=== PATIENT | male | born 1995 | race Caucasian/White ===

== ENCOUNTER 2016-10-26 11:13 | Emergency (ER) | payer MEDICAID ==
[2016-10-26] MEDS ORDERED: DEXAMETHASONE 10 MG/ML VIAL PO STA (12:38)
[2016-10-26] MEDS ORDERED: DEXAMETHASONE 10 MG/ML VIAL ONE (12:46)
[2016-10-26] MEDS ORDERED: CHERRY SYRUP 10 ML UDC PO ONE (12:46)
== END 2016-10-26 13:41 | disposition home or self-care (01) ==
DX: J45.21 Mild intermittent asthma with (acute) exacerbation (principal); H66.003 Acute suppurative otitis media without spontaneous rupture of ear drum, bilateral
CPT/HCPCS: 71020; 99283; 99284; A9270

== ENCOUNTER 2016-11-27 21:01 | Outpatient (CLI) | payer MEDICAID | END 2016-11-27 21:02 | disposition critical access hospital (66) | DX: R46.2 Strange and inexplicable behavior (principal); R44.0 Auditory hallucinations | CPT/HCPCS: A0425; A0429 ==

== ENCOUNTER 2016-11-27 21:08 | Emergency (ER) | payer MEDICAID ==
[2016-11-28] MEDS ORDERED: LORazepam 0.5 MG TABLET PO STA (00:45)
[2016-11-28] MEDS ORDERED: LORazepam 0.5 MG TABLET ONE (00:47)
== END 2016-11-28 16:55 ==
DX: F23 Brief psychotic disorder (principal); F22 Delusional disorders
CPT/HCPCS: 36415; 80048; 80306; 80307; 80320; 80329; 81003; 85025; 99284; 99285; A9270

== ENCOUNTER 2016-12-04 20:26 | Emergency (ER) | payer MEDICAID ==
[2016-12-04] MEDS ORDERED: KETOROLAC 60 MG/2 ML VIAL IM STA (20:56)
[2016-12-04] MEDS ORDERED: KETOROLAC 60 MG/2 ML VIAL ONE (21:20)
== END 2016-12-04 21:08 | disposition home or self-care (01) ==
DX: M25.512 Pain in left shoulder (principal); G89.29 Other chronic pain; F17.200 Nicotine dependence, unspecified, uncomplicated

== ENCOUNTER 2017-01-15 12:28 | Emergency (ER) | payer MEDICAID ==
[2017-01-15 13:12] LABS: BILIRUBIN,URINE NEGATIVE (NEGATIVE); PH,URINE 5.5 PH (5.0-7.5)
[2017-01-15 13:15] LABS: UA CHARGE (STRIP ONLY) YES; UR CULTURE IF IND NOT INDICATED
[2017-01-15 13:51] LABS: BASOPHILS % (AUTO) 0.4 %; EOSINOPHILS # (AUTO) 0.1 10^3/uL (0.0-0.7); EOSINOPHILS % (AUTO) 1.9 %; HCT - HEMATOCRIT 42.7 % (42.0-52.0); HGB - HEMOGLOBIN 14.9 g/dL (14.0-18.0); LYMPHOCYTES # (AUTO) 1.2 10^3/uL (1.5-3.5); LYMPHOCYTES % (AUTO) 19.2 %; MEAN CORPUSCULAR HEMOGLOBIN 28.5 pg (27.0-31.0); MEAN CORPUSCULAR VOLUME 81.6 fL (80.0-94.0); MEAN PLATELET VOLUME 8.3 fL (7.4-11.4); MONOCYTES # (AUTO) 0.5 10^3/uL (0.0-1.0); MONOCYTES % (AUTO) 7.7 %; NEUTROPHILS # (AUTO) 4.2 10^3/uL (1.5-6.6); NEUTROPHILS % (AUTO) 70.8 %; RED BLOOD COUNT 5.24 10^6/uL (4.70-6.10); RED CELL DISTRIBUTION WIDTH 12.7 % (12.0-15.0)
--- NOTE | 2017-01-15 13:54 | ED Physician Documentation ---
PD HPI MHE - Stated complaint Stated Complaint: SI - Chief complaint Chief Complaint: MHE - History obtained from History obtained from: Patient - History of Present Illness Primary symptom: Suicidal ideation Timing - onset: Chronic (worse for past week or so) Pain level max: 0 Pain level now: 0 Contributing factors: No: Family, Substance abuse - ETOH, Substance abuse - drugs Similar symptoms before: Diagnosis (depression) Recently seen: Not recently seen - Additional information Additional information: Patient is a 21-year-old male who states that he has been feeling suicidal for the past several months, worse over the past few days. Recently he was a voluntary admission to [place]. States that he left too early and would like to return. States he does not feel he can keep himself safe at home. Does not currently have a plan. [facility]. Review of Systems Ten Systems: 10 systems reviewed and negative Constitutional: denies: Fever, Chills Respiratory: denies: Cough GI: denies: Abdominal Pain, Nausea, Vomiting, Diarrhea Skin: denies: Rash PD PAST MEDICAL HISTORY - Past Medical History Cardiovascular: None Respiratory: None Neuro: None Endocrine/Autoimmune: None GI: None : Other HEENT: None Psych: Other Musculoskeletal: None Derm: None - Past Surgical History Past Surgical History: Yes - Present Medications Home Medications: Ambulatory Orders Medication Instructions Recorded Confirmed Risperidone 4 mg PO BID #6 tablet 01/15/17 Trazodone HCl 50 mg PO DAILY #3 tablet 01/15/17 - Allergies Allergies/Adverse Reactions: Allergies Allergy/AdvReac Type Severity Reaction Status Date / Time No Known Drug Allergies Allergy Unverified 12/04/16 20:37 - Social History Does the pt smoke?: Yes Smoking Status: Current every day smoker Does the pt drink ETOH?: No Does the pt have substance abuse?: No - Immunizations Immunizations are current?: Yes - POLST Patient has POLST: No PD ED PE NORMAL - Vitals Vital signs reviewed: Yes - General General: Alert and oriented X 3, No acute distress, Well developed/nourished - HEENT HEENT: PERRL, Moist mucous membranes - Neck Neck: Supple, no meningeal sign - Cardiac Cardiac: RRR, Strong equal pulses - Respiratory Respiratory: No respiratory distress, Clear bilaterally - Abdomen Abdomen: Soft, Non tender, Non distended - Derm Derm: Warm and dry - Extremities Extremities: No tenderness to palpate - Neuro Neuro: Alert and oriented X 3 - Psych Psych: Normal mood, Normal affect Results - Vitals Vitals: Vital Signs - 24 hr 01/15/17 01/15/17 01/15/17 12:35 18:16 20:51 Temperature 36.7 C 36.4 C L 37 C Heart Rate 90 57 L 70 Respiratory 17 15 18 Rate Blood Pressure 112/73 114/54 L 119/60 O2 Saturation 96 96 95 01/15/17 23:00 Temperature Heart Rate Respiratory 15 Rate Blood Pressure O2 Saturation Oxygen O2 Source Room air - Labs Labs: Laboratory Tests 01/15/17 01/15/17 01/15/17 13:04 13:18 13:18 WBC 6.0 RBC 5.24 Hgb 14.9 Hct 42.7 MCV 81.6 MCH 28.5 MCHC 35.0 RDW 12.7 Plt Count 199 MPV 8.3 Neut # 4.2 Lymph # 1.2 L Dale # 0.5 Eos # 0.1 Baso # 0.0 Absolute Nucleated RBC 0.00 Nucleated RBCs 0.0 Sodium 139 Potassium 3.9 Chloride 103 Carbon Dioxide 27 Anion Gap 9.0 BUN 12 Creatinine 0.8 Estimated GFR (MDRD) 123 Glucose 104 H Calcium 9.3 Total Bilirubin 1.1 H AST 22 ALT 14 Alkaline Phosphatase 51 Total Protein 7.3 Albumin 4.7 Globulin 2.6 Albumin/Globulin Ratio 1.8 Lipase 18 L Urine Color YELLOW Urine Clarity CLEAR Urine pH 5.5 Ur Specific [place] <=1.005 Urine Protein NEGATIVE Urine Glucose (UA) NEGATIVE Urine Ketones NEGATIVE Urine Occult Blood NEGATIVE Urine Nitrite NEGATIVE Urine Bilirubin NEGATIVE Urine Urobilinogen 0.2 (NORMAL) Ur Leukocyte Esterase NEGATIVE Ur Microscopic Review NOT INDICATED Urine Culture Comments NOT INDICATED Salicylates < 6.0 Urine Opiates Screen NEGATIVE Ur Oxycodone Screen NEGATIVE Urine Methadone Screen NEGATIVE Ur Propoxyphene Screen NEGATIVE Acetaminophen < 10 L Ur Barbiturates Screen NEGATIVE Ur Tricyclics Screen NEGATIVE Ur Phencyclidine Scrn NEGATIVE Ur Amphetamine Screen NEGATIVE U Methamphetamines Scrn NEGATIVE U Benzodiazepines Scrn NEGATIVE Urine Cocaine Screen NEGATIVE U Cannabinoids Screen NEGATIVE Ethyl Alcohol < 5.0 PD MEDICAL DECISION MAKING - ED course Complexity details: reviewed results, re-evaluated patient, considered differential, d/w patient ED course: Patient presents to the emergency department with suicidal ideation and depression. [facility] has no available beds for him to return to. Social work was consulted and he is able to contract for safety and would like to go to a respite bed. Will prescribe medications for him for the next 3 days. Patient is calm and cooperative in the emergency department. He will go to [facility] for respite by taxi. Patient counseled regarding signs and symptoms for which I believe and urgent re-evaluation would be necessary. Patient with good understanding of and agreement to plan and is comfortable going home at this time This document was made in part using voice recognition software. While efforts are made to proofread this document, sound alike and grammatical errors may occur. Departure - Departure Disposition: 01 Home, Self Care Clinical Impression: Depression Qualifiers: Depression Type: unspecified Qualified Code(s): F32.9 - Major depressive disorder, single episode, unspecified Condition: Good Instructions: ED Depression Follow-Up: Anjel Richards MD [Primary Care Provider] - Within 1 week Prescriptions: Risperidone 4 mg PO BID #6 tablet Trazodone HCl 50 mg PO DAILY #3 tablet Comments: Return if you worsen. [facility] Discharge Date/Time: 01/15/17 23:30
[2017-01-15 13:56] LABS: ALBUMIN/GLOBULIN RATIO 1.8 (1.0-2.2); BILIRUBIN,TOTAL 1.1 mg/dL (0.2-1.0); BUN - BLOOD UREA NITROGEN 12 mg/dL (6-20); CALCIUM 9.3 mg/dL (8.5-10.3); CARBON DIOXIDE - CO2 27 mmol/L (21-32); CHLORIDE 103 mmol/L (101-111); CREATININE 0.8 mg/dL (0.6-1.2); GFR - MDRD 123 (>89); GLUCOSE 104 mg/dL (70-100); LIPASE 18 U/L (22-51); POTASSIUM 3.9 mmol/L (3.5-5.0); SALICYLATE < 6.0 mg/dL; SODIUM 139 mmol/L (135-145); TOTAL PROTEIN 7.3 g/dL (6.7-8.2)
[2017-01-15 13:57] LABS: ACETAMINOPHEN < 10 ug/mL (10-30)
[2017-01-15 20:51] VITALS: BP 119/60
[2017-01-15] MEDS ORDERED: risperiDONE 1 MG TABLET PO STA (21:46)
== END 2017-01-15 23:30 | disposition home or self-care (01) ==
LOC: ED 12:28
DX: F32.9 Major depressive disorder, single episode, unspecified (principal); R45.851 Suicidal ideations; F17.200 Nicotine dependence, unspecified, uncomplicated
CPT/HCPCS: 36415; 80053; 80306; 80307; 80320; 80329; 81003; 83690; 85025; 99284; A9270; 81001; 87086

== ENCOUNTER 2017-01-25 14:35 | Emergency (ER) | payer MEDICAID ==
[2017-01-25 14:58] LABS: BILIRUBIN,URINE NEGATIVE (NEGATIVE)
[2017-01-25 15:08] LABS: UA w/ MICROSCOPIC CHARGE YES
[2017-01-25 15:16] LABS: UR CULTURE IF IND NOT INDICATED; WBC,URINE 0-3 /HPF (0-3)
--- NOTE | 2017-01-25 15:35 | ED Physician Documentation ---
PD HPI MHE - Stated complaint Stated Complaint: MHE - Chief complaint Chief Complaint: MHE - History obtained from History obtained from: Patient - History of Present Illness Primary symptom: Depression, Anxiety, Other (trouble sleeping, partly system related in that he did not get to sleep well the past few nights and they have to be up by 9:30 or so at [facility] as part of the agreement staying there.) . No: Suicidal ideation, Suicide attempt, Off meds Timing - onset: How many days ago (few) Contributing factors: No: Substance abuse - ETOH, Substance abuse - drugs Recently seen: Clinic (gets counseling weekly) Review of Systems Constitutional: denies: Fever, Chills Nose: denies: Rhinorrhea / runny nose, Congestion Throat: denies: Sore throat Respiratory: denies: Cough GI: denies: Nausea, Vomiting, Diarrhea Skin: denies: Rash, Lesions Neurologic: denies: Altered mental status, Headache, Head injury Psychiatric: reports: Depressed, Anxiety, Insomnia. denies: Suicidal, Delusions PD PAST MEDICAL HISTORY - Past Medical History Cardiovascular: None Respiratory: None Neuro: None Endocrine/Autoimmune: None GI: None : Other HEENT: None Psych: Other Musculoskeletal: None Derm: None - Past Surgical History Past Surgical History: Yes - Present Medications Home Medications: Ambulatory Orders Medication Instructions Recorded Confirmed Risperidone 4 mg PO BID #6 tablet 01/15/17 Trazodone HCl 50 mg PO DAILY #3 tablet 01/15/17 - Allergies Allergies/Adverse Reactions: Allergies Allergy/AdvReac Type Severity Reaction Status Date / Time No Known Drug Allergies Allergy Unverified 12/04/16 20:37 - Social History Does the pt smoke?: Yes Smoking Status: Current every day smoker Does the pt drink ETOH?: No Does the pt have substance abuse?: No - Immunizations Immunizations are current?: Yes - POLST Patient has POLST: No PD ED PE NORMAL - Vitals Vital signs reviewed: Yes - General General: Alert and oriented X 3, No acute distress, Well developed/nourished - HEENT HEENT: Atraumatic, Pharynx benign - Neck Neck: Supple, no meningeal sign, No adenopathy - Cardiac Cardiac: RRR, No murmur - Respiratory Respiratory: Clear bilaterally - Abdomen Abdomen: Soft, Non tender - Derm Derm: Normal color, Warm and dry - Extremities Extremities: No tenderness to palpate, Normal ROM s pain - Neuro Neuro: Alert and oriented X 3, director electronics 2-12 intact, No motor deficit, No sensory deficit, Normal speech, Other - Psych Psych: Normal mood, Normal affect Results - Vitals Vitals: Oxygen O2 Source Room air - Labs Labs: Laboratory Tests 01/25/17 01/25/17 01/25/17 14:45 16:01 16:01 WBC 8.3 RBC 5.15 Hgb 14.6 Hct 42.5 MCV 82.6 MCH 28.4 MCHC 34.4 RDW 13.0 Plt Count 210 MPV 7.8 Neut # 6.0 Lymph # 1.5 Turner # 0.6 Eos # 0.1 Baso # 0.0 Absolute Nucleated RBC 0.00 Nucleated RBCs 0.0 Sodium 136 Potassium 4.3 Chloride 99 L Carbon Dioxide 27 Anion Gap 10.0 BUN 14 Creatinine 0.8 Estimated GFR (MDRD) 123 Glucose 96 Calcium 9.1 Total Bilirubin 0.7 AST 19 ALT 18 Alkaline Phosphatase 46 Total Protein 6.9 Albumin 4.4 Globulin 2.5 Albumin/Globulin Ratio 1.8 Lipase 18 L TSH Urine Color YELLOW Urine Clarity HAZY Urine pH 7.0 Ur Specific Arthur 1.015 Urine Protein NEGATIVE Urine Glucose (UA) NEGATIVE Urine Ketones NEGATIVE Urine Occult Blood NEGATIVE Urine Nitrite NEGATIVE Urine Bilirubin NEGATIVE Urine Urobilinogen 0.2 (NORMAL) Ur Leukocyte Esterase NEGATIVE Urine RBC 0-5 Urine WBC 0-3 Ur Squamous Epith Cells NONE SEEN Amorphous Sediment Marked Urine Bacteria None Seen Ur Microscopic Review INDICATED Urine Culture Comments NOT INDICATED Salicylates < 6.0 Urine Opiates Screen NEGATIVE Ur Oxycodone Screen NEGATIVE Urine Methadone Screen NEGATIVE Ur Propoxyphene Screen NEGATIVE Acetaminophen < 10 L Ur Barbiturates Screen NEGATIVE Ur Tricyclics Screen NEGATIVE Ur Phencyclidine Scrn NEGATIVE Ur Amphetamine Screen NEGATIVE U Methamphetamines Scrn NEGATIVE U Benzodiazepines Scrn NEGATIVE Urine Cocaine Screen NEGATIVE U Cannabinoids Screen NEGATIVE Ethyl Alcohol < 5.0 01/25/17 16:01 WBC RBC Hgb Hct MCV MCH MCHC RDW Plt Count MPV Neut # Lymph # Turner # Eos # Baso # Absolute Nucleated RBC Nucleated RBCs Sodium Potassium Chloride Carbon Dioxide Anion Gap BUN Creatinine Estimated GFR (MDRD) Glucose Calcium Total Bilirubin AST ALT Alkaline Phosphatase Total Protein Albumin Globulin Albumin/Globulin Ratio Lipase TSH 0.81 Urine Color Urine Clarity Urine pH Ur Specific Arthur Urine Protein Urine Glucose (UA) Urine Ketones Urine Occult Blood Urine Nitrite Urine Bilirubin Urine Urobilinogen Ur Leukocyte Esterase Urine RBC Urine WBC Ur Squamous Epith Cells Amorphous Sediment Urine Bacteria Ur Microscopic Review Urine Culture Comments Salicylates Urine Opiates Screen Ur Oxycodone Screen Urine Methadone Screen Ur Propoxyphene Screen Acetaminophen Ur Barbiturates Screen Ur Tricyclics Screen Ur Phencyclidine Scrn Ur Amphetamine Screen U Methamphetamines Scrn U Benzodiazepines Scrn Urine Cocaine Screen U Cannabinoids Screen Ethyl Alcohol PD MEDICAL DECISION MAKING - ED course Complexity details: reviewed results, considered differential, d/w patient, d/w business solutions consultant (SW talked with patient and his counselor and arranged f/u appt tomorrow. Patient okay with that and was to return to [facility] and did not feel he needed Respite nor hospitalization right today anymore.) Departure - Departure Disposition: 01 Home, Self Care Clinical Impression: Sleep difficulties Depression Qualifiers: Depression Type: major depressive disorder Major depression recurrence: recurrent Active/Remission status: currently active Major depression episode severity: moderate Qualified Code(s): F33.1 - Major depressive disorder, recurrent, moderate Condition: Stable Record reviewed to determine appropriate education?: Yes Instructions: ED Depression Follow-Up: [facility] [Provider Group] Comments: Usual medications, though you could consider changing the timing of your Risperdone from 4 mg AM and 3 mg PM and change it to 2 mg AM and 5 mg PM, to see if less side effects during the day and improved sleep at night. Drink lots of fluids. Follow up BERT[facility] counselor tomorrow at 11 AM as planned. Discharge Date/Time: 01/25/17 17:17
[2017-01-25 16:06] LABS: BASOPHILS % (AUTO) 0.6 %; EOSINOPHILS # (AUTO) 0.1 10^3/uL (0.0-0.7); EOSINOPHILS % (AUTO) 1.6 %; HCT - HEMATOCRIT 42.5 % (42.0-52.0); HGB - HEMOGLOBIN 14.6 g/dL (14.0-18.0); LYMPHOCYTES # (AUTO) 1.5 10^3/uL (1.5-3.5); LYMPHOCYTES % (AUTO) 17.9 %; MEAN CORPUSCULAR HEMOGLOBIN 28.4 pg (27.0-31.0); MEAN CORPUSCULAR HGB CONC 34.4 g/dL (32.0-36.0); MEAN CORPUSCULAR VOLUME 82.6 fL (80.0-94.0); MEAN PLATELET VOLUME 7.8 fL (7.4-11.4); MONOCYTES # (AUTO) 0.6 10^3/uL (0.0-1.0); MONOCYTES % (AUTO) 7.8 %; NEUTROPHILS % (AUTO) 72.1 %; RED BLOOD COUNT 5.15 10^6/uL (4.70-6.10); UNCORRECTED WHITE BLOOD COUNT 8.3 x10^3/uL; WHITE BLOOD COUNT 8.3 x10^3/uL (4.8-10.8)
[2017-01-25 16:30] LABS: ALBUMIN/GLOBULIN RATIO 1.8 (1.0-2.2); BILIRUBIN,TOTAL 0.7 mg/dL (0.2-1.0); BUN - BLOOD UREA NITROGEN 14 mg/dL (6-20); CALCIUM 9.1 mg/dL (8.5-10.3); CARBON DIOXIDE - CO2 27 mmol/L (21-32); CHLORIDE 99 mmol/L (101-111); CREATININE 0.8 mg/dL (0.6-1.2); GFR - MDRD 123 (>89); GLUCOSE 96 mg/dL (70-100); LIPASE 18 U/L (22-51); POTASSIUM 4.3 mmol/L (3.5-5.0); SALICYLATE < 6.0 mg/dL; SODIUM 136 mmol/L (135-145); TOTAL PROTEIN 6.9 g/dL (6.7-8.2)
[2017-01-25 17:15] VITALS: BP 113/62
[2017-01-25 17:17] LABS: ACETAMINOPHEN < 10 ug/mL (10-30)
== END 2017-01-25 17:17 | disposition home or self-care (01) ==
LOC: ED 14:35
DX: G47.9 Sleep disorder, unspecified (principal); F33.1 Major depressive disorder, recurrent, moderate; F17.200 Nicotine dependence, unspecified, uncomplicated
CPT/HCPCS: 36415; 80053; 80306; 80307; 80320; 80329; 81001; 81003; 83690; 84443; 85025; 87086; 99283

== ENCOUNTER 2017-03-09 12:54 | Emergency (ER) | payer OTHER, MEDICAID ==
[2017-03-09 13:05] VITALS: BP 114/69
--- NOTE | 2017-03-09 14:28 | ED Physician Documentation ---
History of Present Illness - Stated complaint Stated Complaint: COLLARBONE INJURY - Chief complaint Chief Complaint: Ext Problem - History obtained from History obtained from: Patient - History of Present Illness Timing: Today, How many hours ago (1) Pain level max: 6 Pain level now: 2 Quality: dull Improved by: nothing Worsened by: palpation - Treatment prior to arrival Treatment prior to arrival: Patient was at work today using a crowbar to pull up an old deck when he struck himself in the right clavicle. States initially had pain, though now improving. Told by his boss to come for evaluation today. Review of Systems Constitutional: denies: Fever Musculoskeletal: denies: Neck pain, Back pain Neurologic: denies: Focal weakness, Numbness, Headache PD PAST MEDICAL HISTORY - Past Medical History Past Medical History: No Cardiovascular: None Respiratory: None Neuro: None Endocrine/Autoimmune: None GI: None : Other HEENT: None Psych: Other Musculoskeletal: None Derm: None - Past Surgical History Past Surgical History: Yes - Present Medications Home Medications: Ambulatory Orders Medication Instructions Recorded Confirmed Trazodone HCl 50 mg PO DAILY #3 tablet 01/15/17 03/09/17 Risperidone 2 mg PO DAILY 03/09/17 03/09/17 Risperidone 4 mg PO DAILY 03/09/17 03/09/17 - Allergies Allergies/Adverse Reactions: Allergies Allergy/AdvReac Type Severity Reaction Status Date / Time No Known Drug Allergies Allergy Verified 03/09/17 13:05 - Social History Does the pt smoke?: Yes Smoking Status: Current every day smoker Does the pt drink ETOH?: No Does the pt have substance abuse?: No - Immunizations Immunizations are current?: Yes - POLST Patient has POLST: No PD ED PE NORMAL - Vitals Vital signs reviewed: Yes - General General: Alert and oriented X 3, No acute distress, Well developed/nourished - HEENT HEENT: Atraumatic, PERRL, Moist mucous membranes - Neck Neck: Supple, no meningeal sign, No bony TTP - Cardiac Cardiac: RRR - Respiratory Respiratory: No respiratory distress, Clear bilaterally - Derm Derm: Warm and dry - Extremities Extremities: Other (Mild tenderness to palpation over the right mid clavicle. There is a slight abrasion and contusion at this point. No gross deformity. Neurovascularly intact over the right upper extremity including the axillary nerve.) - Neuro Neuro: Alert and oriented X 3 - Psych Psych: Normal mood, Normal affect Results - Vitals Vitals: Vital Signs - 24 hr 03/09/17 13:04 Temperature 36.7 C Heart Rate 78 Respiratory 14 Rate Blood Pressure 114/69 O2 Saturation 100 Oxygen O2 Source Room air - Rads (name of study) Right clavicle x-ray Radiology: Prelim report reviewed, EMP read contemporaneously, See rad report ( Normal) PD MEDICAL DECISION MAKING - ED course Complexity details: considered differential, d/w patient ED course: Patient is a 21-year-old male with a clavicle contusion. No acute findings on x -ray. Using the arm quite well here. Declines any pain medication for home. Patient counseled regarding signs and symptoms for which I believe and urgent re -evaluation would be necessary. Patient with good understanding of and agreement to plan and is comfortable going home at this time This document was made in part using voice recognition software. While efforts are made to proofread this document, sound alike and grammatical errors may occur. Departure - Departure Disposition: 01 Home, Self Care Clinical Impression: Contusion of right clavicle Qualifiers: Encounter type: initial encounter Qualified Code(s): S40.011A - Contusion of right shoulder, initial encounter Condition: Good Instructions: ED Contusion Soft Tissue Follow-Up: Anjel Richards MD [Primary Care Provider] - Within 1 week Comments: Return if you worsen. There is no fracture on your xray today. Discharge Date/Time: 03/09/17 14:37
--- NOTE | 2017-03-09 14:33 | XRAY Preliminary Report ---
Exam: XR Clavicle RT IMPRESSION: Normal clavicle radiography. [facility] SITE ID: [id number]
--- NOTE | 2017-03-09 14:35 | XRAY Report ---
EXAM: RIGHT CLAVICLE RADIOGRAPHY EXAM DATE: 03/09/2017 02:15 PM. CLINICAL HISTORY: Clavicle vs crowbar. COMPARISON: None. TECHNIQUE: 2 views. FINDINGS: Bones: Normal. No fracture or bone lesion. Joints: The acromioclavicular and sternoclavicular joints are normal. No subluxation. Soft Tissues: Normal. No soft tissue swelling. IMPRESSION: Normal clavicle radiography. [facility] Referring Provider Line: [phone] SITE ID: [id number]
== END 2017-03-09 14:37 | disposition home or self-care (01) ==
LOC: ED 12:54
DX: S40.011A Contusion of right shoulder, initial encounter (principal); W22.8XXA Striking against or struck by other objects, initial encounter; Y92.89 Other specified places as the place of occurrence of the external cause; Y99.0 Civilian activity done for income or pay; F17.200 Nicotine dependence, unspecified, uncomplicated
CPT/HCPCS: 1040M; 99283

== ENCOUNTER 2017-04-29 13:32 | Emergency (ER) | payer MEDICAID ==
--- NOTE | 2017-04-29 15:06 | ED Physician Documentation ---
PD HPI UPPER EXT INJURY - Stated complaint Stated Complaint: FINGER LAC - Chief complaint Chief Complaint: Laceration - History obtained from History obtained from: Patient - History of Present Illness Location: Left, Finger (index finger tip) Type of injury: Laceration Timing - onset: Today Timing - details: Abrupt onset (bled briskly at first, but stopped enroute.) Associated symptoms: No: Weakness, Numbness Similar symptoms before: Has not had sx before Recently seen: Not recently seen Review of Systems Neurologic: denies: Focal weakness, Numbness PD PAST MEDICAL HISTORY - Past Medical History Cardiovascular: None Respiratory: None Neuro: None Endocrine/Autoimmune: None GI: None : Other HEENT: None Psych: Other Musculoskeletal: None Derm: None - Past Surgical History Past Surgical History: Yes - Present Medications Home Medications: Ambulatory Orders Medication Instructions Recorded Confirmed Trazodone HCl 50 mg PO DAILY #3 tablet 01/15/17 04/29/17 Risperidone 4 mg PO DAILY 03/09/17 04/29/17 Aripiprazole [Abilify] 10 mg PO DAILY 04/29/17 04/29/17 - Allergies Allergies/Adverse Reactions: Allergies Allergy/AdvReac Type Severity Reaction Status Date / Time No Known Drug Allergies Allergy Verified 04/29/17 15:06 - Social History Does the pt smoke?: Yes Smoking Status: Current every day smoker Does the pt drink ETOH?: No Does the pt have substance abuse?: No - Immunizations Immunizations are current?: Yes - POLST Patient has POLST: No PD ED PE NORMAL - Vitals Vital signs reviewed: Yes - General General: Alert and oriented X 3, Well developed/nourished - Derm Derm: Normal color, Warm and dry - Extremities Extremities: Other (left index finger with laceration without bleeding or FB. Edges are together now. Not into nailbed. Patient okay with steri-strips. ) Results - Vitals Vitals: Oxygen O2 Source Room air PD MEDICAL DECISION MAKING - ED course Complexity details: considered differential (bleeding stopped and edges together. I think it can be just steristrips. ), d/w patient Departure - Departure Disposition: 01 Home, Self Care Clinical Impression: Finger laceration Qualifiers: Encounter type: initial encounter Finger: index finger Damage to nail status: without damage Foreign body presence: without foreign body Laterality: left Qualified Code(s): S61.211A - Laceration without foreign body of left index finger without damage to nail, initial encounter Condition: Stable Record reviewed to determine appropriate education?: Yes Instructions: ED Laceration Hand Comments: Keep the wound clean and dry. Allow the glue and Steri-Strips to fall off on their own after several days. After that regular wound care with cleansing soap and water and ointment and Band-Aid. Recheck if signs of infection. Discharge Date/Time: 04/29/17 15:26
[2017-04-29 15:27] VITALS: BP 118/72
== END 2017-04-29 15:26 | disposition home or self-care (01) ==
LOC: ED 13:32
DX: S61.211A Laceration without foreign body of left index finger without damage to nail, initial encounter (principal); W26.9XXA Contact with unspecified sharp object(s), initial encounter; F17.200 Nicotine dependence, unspecified, uncomplicated
CPT/HCPCS: 99281; 99283

== ENCOUNTER 2017-10-25 09:31 | Emergency (ER) | payer MEDICAID ==
[2017-10-25 11:57] LABS: BASOPHILS % (AUTO) 0.5 %; EOSINOPHILS # (AUTO) 0.2 10^3/uL (0.0-0.7); EOSINOPHILS % (AUTO) 2.3 %; HGB - HEMOGLOBIN 16.3 g/dL (14.0-18.0); LYMPHOCYTES # (AUTO) 1.2 10^3/uL (1.5-3.5); LYMPHOCYTES % (AUTO) 16.1 %; MEAN CORPUSCULAR HEMOGLOBIN 28.7 pg (27.0-31.0); MEAN CORPUSCULAR HGB CONC 34.3 g/dL (32.0-36.0); MEAN CORPUSCULAR VOLUME 83.7 fL (80.0-94.0); MEAN PLATELET VOLUME 7.8 fL (7.4-11.4); MONOCYTES # (AUTO) 0.6 10^3/uL (0.0-1.0); MONOCYTES % (AUTO) 7.8 %; NEUTROPHILS # (AUTO) 5.4 10^3/uL (1.5-6.6); NEUTROPHILS % (AUTO) 73.3 %; PLT - PLATELET COUNT 230 10^3/uL (130-450); RED CELL DISTRIBUTION WIDTH 13.5 % (12.0-15.0); WHITE BLOOD COUNT 7.4 x10^3/uL (4.8-10.8)
[2017-10-25 12:12] LABS: ALBUMIN 4.7 g/dL (3.2-5.5); ALBUMIN/GLOBULIN RATIO 1.6 (1.0-2.2); ALKALINE PHOSPHATASE 53 IU/L (42-121); ALT ALANINE AMINOTRANSFERASE 16 IU/L (10-60); AST ASPARTATE AMINOTRANSFERASE 21 IU/L (10-42); BILIRUBIN,TOTAL 1.3 mg/dL (0.2-1.0); BUN - BLOOD UREA NITROGEN 13 mg/dL (6-20); CALCIUM 9.3 mg/dL (8.5-10.3); CARBON DIOXIDE - CO2 27 mmol/L (21-32); CHLORIDE 98 mmol/L (101-111); CREATININE 0.8 mg/dL (0.6-1.2); GFR - MDRD 122 (>89); GLUCOSE 101 mg/dL (70-100); LIPASE 17 U/L (22-51); SALICYLATE < 6.0 mg/dL; SODIUM 135 mmol/L (135-145); TOTAL PROTEIN 7.7 g/dL (6.7-8.2)
[2017-10-25 12:13] LABS: ACETAMINOPHEN < 10 ug/mL (10-30)
[2017-10-25 12:33] LABS: MUDS CUTOFF CONCENTRATIONS CUTOFF CONC BELOW:
[2017-10-25 12:34] LABS: BILIRUBIN,URINE NEGATIVE (NEGATIVE); GLUCOSE, URINE (UA) NEGATIVE (NEGATIVE); KETONES,URINE (UA) NEGATIVE (NEGATIVE); LEUKOCYTE ESTERASE, URINE NEGATIVE (NEGATIVE); NITRITE,URINE NEGATIVE (NEGATIVE); OCCULT BLOOD,URINE NEGATIVE (NEGATIVE); PH,URINE 7.5 PH (5.0-7.5); PROTEIN,URINE NEGATIVE (NEGATIVE); UROBILINOGEN,URINE 0.2 (NORMAL) E.U./dL (NORMAL)
[2017-10-25 12:35] LABS: CLARITY,URINE CLEAR (CLEAR)
[2017-10-25 12:49] LABS: PROPOXYPHENE SCREEN, URINE NEGATIVE (NEGATIVE)
[2017-10-25 12:50] LABS: AMPHETAMINE SCREEN,URINE NEGATIVE (NEGATIVE); BENZODIAZEPINES SCREEN, URINE NEGATIVE (NEGATIVE); COCAINE SCREEN URINE NEGATIVE (NEGATIVE); METHADONE SCREEN, URINE NEGATIVE (NEGATIVE); METHAMPHETAMINES SCREEN, URINE NEGATIVE (NEGATIVE); OPIATE SCREEN, URINE NEGATIVE (NEGATIVE); OXYCODONE SCREEN, URINE NEGATIVE (NEGATIVE); TRICYCLIC ANTIDEPRESSANT,URINE NEGATIVE (NEGATIVE)
--- NOTE | 2017-10-25 13:28 | ED Physician Documentation ---
PD HPI MHE - Stated complaint Stated Complaint: MHE - Chief complaint Chief Complaint: MHE - History obtained from History obtained from: Patient, Family - History of Present Illness Primary symptom: Psychosis, Off meds. No: Suicidal ideation, Self harm - other Timing - onset: How many weeks ago (2-3 worsening) Contributing factors: Off meds (The patient has not taken his medications for about 2-3 months. His father and also his adopted mother refers to her herself as his aunt both say the patient has had increasing light of ideas and has had a lot of episodes of responding to internal stimulus with suddenly breaking out and hysterical laughter and also seeming to adjust to and out from his environment in the just staring blankly. He is working as a cook and his father states 1 of the coworkers told him the patient expressed the idea couple of days ago of "I wonder what would happen if you just put my arms into this hot grease). He has had significant degree of delusions of parasitism and has been picking at his skin more and more over the last several days in particular. He has been cleaning himself with various disinfectants and also some peroxide. His father expresses concern that he may try to cleanse his skin with the cooking grease at work. He has not had any mack at this point. The adamantly says he does not want to take medicines.) Similar symptoms before: Diagnosis (acute psychosis), Other (he has some ongoing feeling of parasitism, but this has been considerably worse the past week.) Recently seen: Not recently seen Review of Systems Constitutional: denies: Fever, Chills Nose: denies: Rhinorrhea / runny nose, Congestion Throat: denies: Sore throat Cardiac: denies: Chest pain / pressure, Palpitations Respiratory: denies: Dyspnea, Cough GI: denies: Nausea, Vomiting, Diarrhea Skin: reports: Other (Feeling of bugs crawling on him all over and feels that he cannot get rid of them even after washing.). denies: Abrasion (s), Laceration (s) Musculoskeletal: denies: Neck pain, Back pain PD PAST MEDICAL HISTORY - Past Medical History Cardiovascular: None Respiratory: None Neuro: None Endocrine/Autoimmune: None GI: None : Other HEENT: None Psych: Other Musculoskeletal: None Derm: None - Past Surgical History Past Surgical History: Yes - Present Medications Home Medications: Ambulatory Orders Medication Instructions Recorded Confirmed No Known Home Medications [No 10/25/17 10/25/17 Known Home Medications] - Allergies Allergies/Adverse Reactions: Allergies Allergy/AdvReac Type Severity Reaction Status Date / Time No Known Drug Allergies Allergy Verified 04/29/17 15:06 - Social History Does the pt smoke?: Yes Smoking Status: Current every day smoker Does the pt drink ETOH?: Yes ETOH Use: Beer Does the pt have substance abuse?: No - Immunizations Immunizations are current?: Yes - POLST Patient has POLST: No PD ED PE NORMAL - Vitals Vital signs reviewed: Yes - General General: Alert and oriented X 3, No acute distress, Well developed/nourished - HEENT HEENT: Moist mucous membranes, Pharynx benign, Other (some superficial scratch/ excoriation stevenson on face and forehead presume from him scratching himself. ) - Neck Neck: Supple, no meningeal sign, No adenopathy - Cardiac Cardiac: RRR, No murmur - Respiratory Respiratory: Clear bilaterally - Derm Derm: Normal color, Warm and dry - Neuro Neuro: Alert and oriented X 3, No motor deficit, Normal speech - Psych Psych: Other (Tangential thought process and he also states he does not believe he needs medication or treatment. There is a tone of paranoia and that he feels concerned about people making decisions for him. He expresses concern about the legality of being hospitalized. We explained to him the applicable statutes but he denies their applicability to him. He does not express any suicidal ideation.) Results - Vitals Vitals: Vital Signs - 24 hr 10/25/17 10/25/17 10/25/17 10:06 12:21 19:26 Temperature 37.1 C Heart Rate 88 75 61 Respiratory 18 16 17 Rate Blood Pressure 138/69 H 146/83 H 118/68 O2 Saturation 98 96 97 10/25/17 21:35 Temperature Heart Rate 82 Respiratory 14 Rate Blood Pressure 123/68 O2 Saturation 99 Oxygen O2 Source Room air - Labs Labs: Laboratory Tests 10/25/17 10/25/17 10/25/17 11:52 11:52 12:30 WBC 7.4 RBC 5.70 Hgb 16.3 Hct 47.7 MCV 83.7 MCH 28.7 MCHC 34.3 RDW 13.5 Plt Count 230 MPV 7.8 Neut # 5.4 Lymph # 1.2 L [place] # 0.6 Eos # 0.2 Baso # 0.0 Absolute Nucleated RBC 0.00 Nucleated RBC % 0.0 Sodium 135 Potassium 3.6 Chloride 98 L Carbon Dioxide 27 Anion Gap 10.0 BUN 13 Creatinine 0.8 Estimated GFR (MDRD) 122 Glucose 101 H Calcium 9.3 Total Bilirubin 1.3 H AST 21 ALT 16 Alkaline Phosphatase 53 Total Protein 7.7 Albumin 4.7 Globulin 3.0 Albumin/Globulin Ratio 1.6 Lipase 17 L Urine Color YELLOW Urine Clarity CLEAR Urine pH 7.5 Ur Specific [place] 1.015 Urine Protein NEGATIVE Urine Glucose (UA) NEGATIVE Urine Ketones NEGATIVE Urine Occult Blood NEGATIVE Urine Nitrite NEGATIVE Urine Bilirubin NEGATIVE Urine Urobilinogen 0.2 (NORMAL) Ur Leukocyte Esterase NEGATIVE Ur Microscopic Review NOT INDICATED Urine Culture Comments NOT INDICATED Salicylates < 6.0 Urine Opiates Screen NEGATIVE Ur Oxycodone Screen NEGATIVE Urine Methadone Screen NEGATIVE Ur Propoxyphene Screen NEGATIVE Acetaminophen < 10 L Ur Barbiturates Screen NEGATIVE Ur Tricyclics Screen NEGATIVE Ur Phencyclidine Scrn NEGATIVE Ur Amphetamine Screen NEGATIVE U Methamphetamines Scrn NEGATIVE U Benzodiazepines Scrn NEGATIVE Urine Cocaine Screen NEGATIVE U Cannabinoids Screen NEGATIVE Ethyl Alcohol < 5.0 PD MEDICAL DECISION MAKING - ED course Complexity details: considered differential (The patient is not suicidal nor homicidal. However he has a reasonable paranoia and also is quite adamant against medications. He does have some tangential thought processes. I think he is developing psychosis and is not approachable for outpatient treatment with his resistance to medication. I think he needs treatment and unfortunately will not be able to be done cooperatively at this point. research worker kitchen also felt the [facility] needed to be involved. The [facility] came and evaluated the patient and felt that he needed to be hospitalized after discussion with family.), d/w patient, d/w family Departure - Departure Disposition: 65 Psych Hosp/Unit DC/Xfer Clinical Impression: Acute psychosis, Delusions of parasitosis Condition: Stable Record reviewed to determine appropriate education?: Yes Discharge Date/Time: 10/25/17 22:00
[2017-10-25 22:23] VITALS: BP 123/68
== END 2017-10-25 22:00 ==
LOC: ED 09:31
DX: F23 Brief psychotic disorder (principal); F22 Delusional disorders; F17.200 Nicotine dependence, unspecified, uncomplicated
CPT/HCPCS: 36415; 80053; 80306; 80307; 80320; 80329; 81001; 81003; 83690; 85025; 87086; 99283; 99284

== ENCOUNTER 2017-10-25 21:54 | Outpatient (CLI) | payer MEDICAID | END 2017-10-25 21:55 | LOC: EMS 21:54 | PROVIDERS: ATTEND Surgery | DX: F22 Delusional disorders (principal) | CPT/HCPCS: A0425; A0428 ==

== ENCOUNTER 2018-09-29 14:10 | Emergency (ER) | payer MEDICAID, OTHER ==
[2018-09-29 14:20] VITALS: BP 111/62
--- NOTE | 2018-09-29 15:50 | ED Physician Documentation ---
PD HPI SKIN - Stated complaint Stated Complaint: R HAND SWELLING/REDNESS - Chief complaint Chief Complaint: Ext Problem - History obtained from History obtained from: Patient - History of Present Illness Timing - onset: Other (1 month ago) Timing - duration: Months (1) Timing - details: Gradual onset Pain level max: 3 Pain level now: 2 Location: Other (B hands) Quality / character: Itchy, Raised, Crusted Improved by: Other (nothing) Worsened by (comment): COMMENT (nothing) Associated symptoms: No: Fever, Myalgias, Joint pain, Headache, Facial swelling, Dyspnea, Abd pain, N/V/D, Urinary sx Contributing factors: No: Exposed to medication, Exposed to food, Exposed to soap / lotion, Exposed to Poison bekah/oak, Insect bite /sting, Recent illness Similar symptoms before: Diagnosis (eczema) Recently seen: Not recently seen Review of Systems Constitutional: denies: Fever, Chills GI: denies: Nausea, Vomiting Neurologic: denies: Headache PD PAST MEDICAL HISTORY - Past Medical History Past Medical History: No Cardiovascular: None Respiratory: None Endocrine/Autoimmune: None GI: None : Other HEENT: None Psych: Other Musculoskeletal: None Derm: None - Past Surgical History Past Surgical History: Yes - Present Medications Home Medications: Ambulatory Orders Medication Instructions Recorded Confirmed Clobetasol 0.05% Oint [Temovate 1 applic TOP BID PRN #1 tube 09/29/18 0.05% Oint] predniSONE [Prednisone] 40 mg PO DAILY #10 tablet 09/29/18 - Allergies Allergies/Adverse Reactions: Allergies Allergy/AdvReac Type Severity Reaction Status Date / Time No Known Drug Allergies Allergy Verified 09/29/18 14:18 - Social History Does the pt smoke?: Yes Smoking Status: Current every day smoker Does the pt drink ETOH?: Yes Does the pt have substance abuse?: No - Immunizations Immunizations are current?: Yes - POLST Patient has POLST: No PD ED PE NORMAL - Vitals Vital signs reviewed: Yes - General General: Alert and oriented X 3, No acute distress - Derm Derm: Warm and dry - Extremities Extremities: Other (Erythematous, scaly rash to the dorsum of the bilateral hands. Excoriation stevenson present) - Neuro Neuro: Alert and oriented X 3 Results - Vitals Vitals: Vital Signs - 24 hr 09/29/18 14:14 Temperature 36 C L Heart Rate 65 Respiratory 16 Rate Blood Pressure 111/62 O2 Saturation 98 Oxygen O2 Source Room air PD MEDICAL DECISION MAKING - ED course Complexity details: considered differential, d/w patient ED course: 23-year-old male with what appears to be eczema of the bilateral hands. Will place on steroids and steroid ointment for home. We will have him follow-up with his PCP for further care. Does not appear to be a fungal infection at this time. Patient counseled regarding signs and symptoms for which I believe and urgent re-evaluation would be necessary. Patient with good understanding of and agreement to plan and is comfortable going home at this time This document was made in part using voice recognition software. While efforts are made to proofread this document, sound alike and grammatical errors may occur. Departure - Departure Disposition: 01 Home, Self Care Clinical Impression: Eczema Qualifiers: Eczema type: unspecified Qualified Code(s): L30.9 - Dermatitis, unspecified Condition: Good Instructions: ED Dermatitis Atopic Eczema Follow-Up: Anjel Richards MD [Primary Care Provider] - Within 1 week Prescriptions: Clobetasol 0.05% Oint [Temovate 0.05% Oint] 1 applic TOP BID PRN #1 tube PRN Reason: rash predniSONE [Prednisone] 40 mg PO DAILY #10 tablet Comments: Use the medication as prescribed. Return if you worsen. Follow-up with your doctor for further care. Discharge Date/Time: 09/29/18 15:54
== END 2018-09-29 15:54 | disposition home or self-care (01) ==
LOC: ED 14:10
DX: L30.9 Dermatitis, unspecified (principal); F17.200 Nicotine dependence, unspecified, uncomplicated
CPT/HCPCS: 99283

== ENCOUNTER 2019-01-20 18:34 | Outpatient (CLI) | payer SELFPAY | END 2019-01-20 18:35 | disposition critical access hospital (66) | LOC: EMS 18:34 | PROVIDERS: ATTEND Surgery | DX: M54.9 Dorsalgia, unspecified (principal); R51 Headache; Y04.8XXA Assault by other bodily force, initial encounter | CPT/HCPCS: A0425; A0429 ==

== ENCOUNTER 2019-01-20 19:11 | Emergency (ER) | payer SELFPAY ==
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
[2019-01-20] MEDS ORDERED: HYDROcod/ACETAM 5/325 MG TABLET PO STA (21:13)
[2019-01-20] MEDS ORDERED: IBUPROFEN 600 MG TABLET PO STA (21:13)
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
[2019-01-20] MEDS ORDERED: HYDROcod/ACET 5/325 Prepack 4 PO STA (22:01)
[2019-01-20 22:27] VITALS: BP 137/66
== END 2019-01-20 22:27 | disposition home or self-care (01) ==
LOC: EDUNIT# → ED 19:11
DX: S20.219A Contusion of unspecified front wall of thorax, initial encounter (principal); S29.019A Strain of muscle and tendon of unspecified wall of thorax, initial encounter; Y04.2XXA Assault by strike against or bumped into by another person, initial encounter; F17.200 Nicotine dependence, unspecified, uncomplicated
CPT/HCPCS: 71111; 99283; A9270

== ENCOUNTER 2019-01-27 20:04 | Outpatient (CLI) | payer SELFPAY | END 2019-01-27 20:05 | disposition EMS.NT | LOC: EMS 20:04 | PROVIDERS: ATTEND Surgery | DX: R46.89 Other symptoms and signs involving appearance and behavior (principal) ==

== ENCOUNTER 2019-04-11 00:19 | Outpatient (CLI) | payer MEDICAID | END 2019-04-11 00:20 | disposition critical access hospital (66) | LOC: EMS 00:19 | PROVIDERS: ATTEND Surgery | DX: F41.9 Anxiety disorder, unspecified (principal); R46.89 Other symptoms and signs involving appearance and behavior | CPT/HCPCS: A0425; A0429; A0999 ==

== ENCOUNTER 2019-04-11 00:43 | Emergency (ER) | payer MEDICAID ==
[2019-04-11 00:51] VITALS: BP 118/81
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
[2019-04-11 01:48] LABS: BASOPHILS % (AUTO) 0.3 %; EOSINOPHILS # (AUTO) 0.2 10^3/uL (0.0-0.7); EOSINOPHILS % (AUTO) 1.6 %; HGB - HEMOGLOBIN 15.8 g/dL (14.0-18.0); LYMPHOCYTES # (AUTO) 1.4 10^3/uL (1.5-3.5); LYMPHOCYTES % (AUTO) 13.6 %; MEAN CORPUSCULAR VOLUME 85.3 fL (80.0-94.0); MEAN PLATELET VOLUME 9.6 fL (7.4-11.4); MONOCYTES # (AUTO) 0.8 10^3/uL (0.0-1.0); MONOCYTES % (AUTO) 7.9 %; NEUTROPHILS # (AUTO) 7.6 10^3/uL (1.5-6.6); NEUTROPHILS % (AUTO) 76.1 %; PLT - PLATELET COUNT 265 10^3/uL (130-450); RED BLOOD COUNT 5.45 10^6/uL (4.70-6.10); RED CELL DISTRIBUTION WIDTH 12.4 % (12.0-15.0)
[2019-04-11 02:04] LABS: ACETAMINOPHEN < 10 ug/mL (10-30); ALBUMIN 4.5 g/dL (3.2-5.5); ALBUMIN/GLOBULIN RATIO 1.7 (1.0-2.2); ALKALINE PHOSPHATASE 45 IU/L (42-121); ALT ALANINE AMINOTRANSFERASE 19 IU/L (10-60); AST ASPARTATE AMINOTRANSFERASE 18 IU/L (10-42); BUN - BLOOD UREA NITROGEN 15 mg/dL (6-20); CALCIUM 9.3 mg/dL (8.5-10.3); CARBON DIOXIDE - CO2 26 mmol/L (21-32); CHLORIDE 99 mmol/L (101-111); CREATININE 0.9 mg/dL (0.6-1.2); GFR - MDRD 106 (>89); GLUCOSE 104 mg/dL (70-100); LIPASE 118 U/L (22-51); SALICYLATE < 6.0 mg/dL; SODIUM 139 mmol/L (135-145); TOTAL PROTEIN 7.2 g/dL (6.7-8.2)
[2019-04-11 02:18] LABS: MUDS CUTOFF CONCENTRATIONS CUTOFF CONC BELOW:
[2019-04-11 02:19] LABS: BILIRUBIN,URINE NEGATIVE (NEGATIVE); GLUCOSE, URINE (UA) NEGATIVE (NEGATIVE); KETONES,URINE (UA) NEGATIVE (NEGATIVE); LEUKOCYTE ESTERASE, URINE NEGATIVE (NEGATIVE); NITRITE,URINE NEGATIVE (NEGATIVE); OCCULT BLOOD,URINE NEGATIVE (NEGATIVE); PH,URINE 5.5 PH (5.0-7.5); PROTEIN,URINE TRACE mg/dL (NEGATIVE); UROBILINOGEN,URINE 0.2 (NORMAL) E.U./dL (NORMAL)
[2019-04-11 02:20] LABS: CLARITY,URINE CLEAR (CLEAR)
[2019-04-11 02:29] LABS: AMPHETAMINE SCREEN,URINE NEGATIVE (NEGATIVE); BENZODIAZEPINES SCREEN, URINE NEGATIVE (NEGATIVE); COCAINE SCREEN URINE NEGATIVE (NEGATIVE); METHADONE SCREEN, URINE NEGATIVE (NEGATIVE); METHAMPHETAMINES SCREEN, URINE NEGATIVE (NEGATIVE); OPIATE SCREEN, URINE NEGATIVE (NEGATIVE); OXYCODONE SCREEN, URINE NEGATIVE (NEGATIVE); TRICYCLIC ANTIDEPRESSANT,URINE NEGATIVE (NEGATIVE)
[2019-04-11 02:30] LABS: PROPOXYPHENE SCREEN, URINE NEGATIVE (NEGATIVE)
--- NOTE | 2019-04-11 09:04 | ED Physician Documentation ---
ED Addendum - Addendum Addendum: 04/11/19 09:03 Patient denies any homicidal or suicidal ideation. Is not acutely psychotic. Social work gave resources for [facility] as well as the [facility]. No emergency medical condition at this time. This document was made in part using voice recognition software. While efforts are made to proofread this document, sound alike and grammatical errors may occur. Departure - Departure Disposition: 01 Home, Self Care Clinical Impression: Homeless, Marijuana abuse Condition: Good Instructions: ED Drug Abuse General Follow-Up: Anjel Richards MD [Primary Care Provider] - Within 1 week Comments: [facility] as directed by the social work associate today.
== END 2019-04-11 09:18 | disposition home or self-care (01) ==
LOC: EDUNIT# → ED 00:43
DX: F41.0 Panic disorder [episodic paroxysmal anxiety] (principal); F12.10 Cannabis abuse, uncomplicated; Z59.0 Homelessness; F17.200 Nicotine dependence, unspecified, uncomplicated
CPT/HCPCS: 36415; 80053; 80306; 80307; 80320; 80329; 81001; 81003; 83690; 84443; 85025; 87086; 99281; 99283

== ENCOUNTER 2019-04-11 23:37 | Outpatient (CLI) | payer MEDICAID | END 2019-04-11 23:38 | disposition critical access hospital (66) | LOC: EMS 23:37 | PROVIDERS: ATTEND Surgery | DX: R45.89 Other symptoms and signs involving emotional state (principal); Z59.0 Homelessness | CPT/HCPCS: A0425; A0429 ==

== ENCOUNTER 2019-04-12 00:03 | Emergency (ER) | payer MEDICAID ==
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
[2019-04-12 01:22] VITALS: BP 118/73
== END 2019-04-12 01:26 | disposition home or self-care (01) ==
LOC: EDUNIT# → ED 00:03
DX: F43.9 Reaction to severe stress, unspecified (principal); F20.9 Schizophrenia, unspecified; F17.200 Nicotine dependence, unspecified, uncomplicated; Z59.0 Homelessness
CPT/HCPCS: 99281; 99284

== ENCOUNTER 2019-04-15 22:45 | Outpatient (CLI) | payer MEDICAID | END 2019-04-15 22:46 | disposition critical access hospital (66) | LOC: EMS 22:45 | PROVIDERS: ATTEND Surgery | DX: R20.0 Anesthesia of skin (principal) | CPT/HCPCS: A0425; A0429 ==

== ENCOUNTER 2019-04-15 23:14 | Emergency (ER) | payer MEDICAID ==
[2019-04-15 23:30] VITALS: BP 136/72
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
== END 2019-04-16 01:29 | disposition home or self-care (01) ==
LOC: EDUNIT# → ED 23:14
DX: R20.2 Paresthesia of skin (principal); F17.200 Nicotine dependence, unspecified, uncomplicated
CPT/HCPCS: 99282; 99283

== ENCOUNTER 2019-04-28 04:50 | Emergency (ER) | payer OTHER, MEDICAID ==
[2019-04-28 04:54] VITALS: BP 151/85
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
--- NOTE | 2019-04-28 06:06 | XRAY Report ---
Reason: chest and bilateral shoulder pain Procedure Date: 04/28/2019 Accession Number: [id number] / [id number] Procedure: XR - Chest 2 View X-Ray CPT Code: 02753 FULL RESULT: EXAM: CHEST RADIOGRAPHY EXAM DATE: 04/28/2019 05:39 AM. CLINICAL HISTORY: Chest and bilateral shoulder pain. COMPARISON: RIBS BILAT W/CHEST 4 VIEW 01/20/2019 9:16 PM. TECHNIQUE: 2 views. FINDINGS: Lungs/Pleura: No focal opacities evident. No pleural effusion. No pneumothorax. Normal volumes. Mediastinum: Heart and mediastinal contours are unremarkable. Other: None. IMPRESSION: Normal 2-view chest radiography. RADIA
== END 2019-04-28 06:29 | disposition home or self-care (01) ==
LOC: ED 04:50
DX: Z02.89 Encounter for other administrative examinations (principal); F17.200 Nicotine dependence, unspecified, uncomplicated
CPT/HCPCS: 71046; 99281; 99283

== ENCOUNTER 2019-07-21 16:25 | Observation (INO) | payer MEDICAID, OTHER ==
--- NOTE | 2019-07-21 17:58 | ED Physician Documentation ---
History of Present Illness - Stated complaint Stated Complaint: LT HAND INJURY - Chief complaint Chief Complaint: Ext Problem - Additonal information Additional information: This is a 23-year-old male who presents with swelling over his left hand. Patient states that he was kneading dough several days ago and wearing a ring on his ring finger and he thinks he irritated the skin or had a small cut on his finger, and he began developing redness in the area. He saw his primary care provider who prescribed him doxycycline, but he lost the antibiotic so he was represcribed this yesterday. He has been taking the doxycycline for 24 hours and he says that the redness has been slowing down it spread but it is still continuing to expand. The left ring finger did have a area that drained some pus earlier, now it is no longer draining. He denies fever. He does have significant tenderness over all the area that is red. He denies pain tracking down his tendons on the palmar surface of his hand Review of Systems Constitutional: denies: Fever GI: denies: Vomiting Skin: reports: Rash Musculoskeletal: reports: Extremity pain Immunocompromised: denies: Immunocompromised PD PAST MEDICAL HISTORY - Past Medical History Cardiovascular: None Respiratory: None Neuro: None Endocrine/Autoimmune: None GI: None : Other HEENT: None Psych: Schizophrenia, Other Musculoskeletal: None Derm: None - Past Surgical History Past Surgical History: Yes - Present Medications Home Medications: Ambulatory Orders Medication Instructions Recorded Confirmed Clobetasol 0.05% Oint [Temovate 1 applic TOP BID PRN #1 tube 09/29/18 0.05% Oint] predniSONE [Prednisone] 40 mg PO DAILY #10 tablet 09/29/18 Aripiprazole [Abilify] 10 mg PO 07/21/19 Doxycycline Hyclate 100 mg PO 07/21/19 Ketorolac Tromethamine [Readysharp 15 mg IJ 07/21/19 Ketorolac] hydrOXYzine HCl [Hydroxyzine HCl] 25 mg PO 07/21/19 - Allergies Allergies/Adverse Reactions: Allergies Allergy/AdvReac Type Severity Reaction Status Date / Time No Known Drug Allergies Allergy Verified 07/21/19 16:58 - Social History Does the pt smoke?: Yes Smoking Status: Current every day smoker Does the pt drink ETOH?: Yes Does the pt have substance abuse?: No - Immunizations Immunizations are current?: Yes - POLST Patient has POLST: No PD ED PE NORMAL - Vitals Vital signs reviewed: Yes - General General: Alert and oriented X 3 - HEENT HEENT: Atraumatic - Neck Neck: Supple, no meningeal sign - Cardiac Cardiac: RRR - Respiratory Respiratory: No respiratory distress - Extremities Extremities: Other (Over the left hand over the ring finger there is a small raised area of erythema with some serous drainage from a small open wound, there is no palpable fluctuance, no purulence is able to be expressed from this area. There is redness that tracks from the dorsal left ring finger from the level of the PIP to the dorsum of the hand and extends down to the level of the wrist. This area is tender to palpation, there is no fluctuance. Over the palm there is no redness, Patient does not have significant tenderness along any of the flexor tendons. He is able to flex and extend his finger, all movement causes some discomfort. Sensation to light touch is intact and capillary refill is brisk) Results - Vitals Vitals: Vital Signs - 24 hr 07/21/19 07/21/19 16:58 21:29 Temperature 36.9 C 36.8 C Heart Rate 98 72 Respiratory 15 16 Rate Blood Pressure 145/72 H 126/72 O2 Saturation 97 98 Oxygen O2 Source Room air - Labs Labs: Microbiology 07/21/19 17:04 Wound Culture - Preliminary Finger - Left Ring Laboratory Tests 07/21/19 07/21/19 19:15 19:15 WBC 13.4 H RBC 5.04 Hgb 14.3 Hct 43.5 MCV 86.3 MCH 28.4 MCHC 32.9 RDW 13.2 Plt Count 277 MPV 9.7 Neut # (Auto) 9.5 H Lymph # (Auto) 2.3 Duval # (Auto) 0.9 Eos # (Auto) 0.6 Baso # (Auto) 0.0 Absolute Nucleated RBC 0.00 Nucleated RBC % 0.0 Sodium 138 Potassium 4.1 Chloride 101 Carbon Dioxide 28 Anion Gap 9.0 BUN 21 H Creatinine 0.9 Estimated GFR (MDRD) 106 Glucose 114 H Calcium 9.2 C-Reactive Protein < 1.0 - Rads (name of study) CT left hand Radiology: Other (Cellulitis over the dorsal left hand. There is a small area of possible phlegmon on the left ring finger on the dorsal aspect.) PD MEDICAL DECISION MAKING - ED course Complexity details: considered differential (Cellulitis, abscess, Pyomyositis, tenosynovitis) ED course: On exam patient is nontoxic-appearing, his extremity is neurovascularly intact. He has an area that was draining some pus but I cannot express any purulence and I do not feel any fluctuance over the hand. IV was inserted and labs were drawn, patient does have a leukocytosis but his CRP is normal. He was given a dose of vancomycin as well as Unasyn given he has expanding cellulitis despite being on doxycycline. He does not have tenderness along the palmar tendons and does not appear to have palmar involvement, I do not see signs of flexor tenosynovitis. CT scan of the hand was performed to check for abscess or pyomyositis or other deeper infections, this reveals a small possible phlegmon in the left ring finger on the dorsal aspect, and cellulitic changes. I think he will respond well to IV antibiotics, and is appropriate for admission at this hospital given his CT findings. I spoke with Dr. Caldwell who is in agreement and will admit the patient observation status for further treatment. I discussed the results and the plan of care with patient who is in agreement. Departure - Departure Disposition: ED Place in Observation Clinical Impression: Cellulitis of hand, left Condition: Good Forms: Activity restrictions
[2019-07-21] MEDS ORDERED: AMPICILLIN/SULBACTAM 3 GM in SODIUM CHLORIDE 0.9% MINIBAG 100 ML IV STA (19:00)
[2019-07-21] MEDS ORDERED: VANCOMYCIN INJ 1,500 GM in SODIUM CHLORIDE 0.9% 500 ML IV STA (19:00)
[2019-07-21] MEDS ORDERED: SODIUM CHLORIDE 0.9% 500 ML ONE ×2 (19:19→19:29)
[2019-07-21 19:23] LABS: BASOPHILS % (AUTO) 0.2 %; EOSINOPHILS # (AUTO) 0.6 10^3/uL (0.0-0.7); EOSINOPHILS % (AUTO) 4.3 %; HGB - HEMOGLOBIN 14.3 g/dL (14.0-18.0); LYMPHOCYTES # (AUTO) 2.3 10^3/uL (1.5-3.5); MEAN CORPUSCULAR HEMOGLOBIN 28.4 pg (27.0-31.0); MEAN CORPUSCULAR HGB CONC 32.9 g/dL (32.0-36.0); MEAN CORPUSCULAR VOLUME 86.3 fL (80.0-94.0); MEAN PLATELET VOLUME 9.7 fL (7.4-11.4); MONOCYTES # (AUTO) 0.9 10^3/uL (0.0-1.0); MONOCYTES % (AUTO) 6.8 %; NEUTROPHILS # (AUTO) 9.5 10^3/uL (1.5-6.6); NEUTROPHILS % (AUTO) 71.1 %; PLT - PLATELET COUNT 277 10^3/uL (130-450); RED BLOOD COUNT 5.04 10^6/uL (4.70-6.10); RED CELL DISTRIBUTION WIDTH 13.2 % (12.0-15.0); WHITE BLOOD COUNT 13.4 x10^3/uL (4.8-10.8)
[2019-07-21] MEDS ORDERED: VANCOMYCIN 1 GM VIAL ONE ×2 (19:28→19:41)
--- NOTE | 2019-07-21 19:35 | XRAY Report ---
Reason: pain and swelling, infection Procedure Date: 07/21/2019 Accession Number: [id number] / [id number] Procedure: XR - Hand 2 View LT CPT Code: Final Report FULL RESULT: EXAM: LEFT HAND RADIOGRAPHY EXAM DATE: 07/21/2019 07:07 PM. CLINICAL HISTORY: Pain and swelling, infection. COMPARISON: None. TECHNIQUE: 2 views. FINDINGS: Bones: No acute bone findings are seen. Fifth metacarpal old healed fracture deformity. No evidence for acute fracture. 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 Joints: Normal. No subluxations. Soft Tissues: Dorsal hand soft tissue swelling. Fourth digit soft tissue swelling. No acute bone findings are seen. IMPRESSION: Dorsal hand soft tissue swelling. Fourth digit soft tissue swelling. No acute bone findings are seen. RADIA
[2019-07-21 19:39] LABS: BUN - BLOOD UREA NITROGEN 21 mg/dL (6-20); CALCIUM 9.2 mg/dL (8.5-10.3); CARBON DIOXIDE - CO2 28 mmol/L (21-32); CHLORIDE 101 mmol/L (101-111); CREATININE 0.9 mg/dL (0.6-1.2); GFR - MDRD 106 (>89); GLUCOSE 114 mg/dL (70-100); SODIUM 138 mmol/L (135-145)
[2019-07-21 19:44] LABS: CRP - C-REACTIVE PROTEIN < 1.0 mg/dL (0-1.0)
[2019-07-21] MEDS ORDERED: VANCOMYCIN 1 GM VIAL IV ONE (19:48)
[2019-07-21] MEDS ORDERED: IOVERSOL 320 100 ML VIAL IVP ONE ×2 (21:26→21:44)
--- NOTE | 2019-07-21 22:24 | CT Report ---
Reason: L hand to assess for tendon infection, abscess Procedure Date: 07/21/2019 Accession Number: [id number] / [id number] Procedure: CT - UPPER EXTREMITY W - LT CPT Code: Final Report FULL RESULT: EXAM: LEFT HAND AND WRIST CT WITH CONTRAST EXAM DATE: 07/21/2019 09:47 PM. CLINICAL HISTORY: Left ring finger laceration with redness and swelling extending into the hand. COMPARISON: None. TECHNIQUE: Thin-section axial images were acquired of the hand and wrist after administration of intravenous contrast. IV contrast: None. Post-processing: Coronal and sagittal reformats. Other: None. In accordance with CT protocol optimization, one or more of the following dose reduction techniques were utilized for this exam: automated exposure control, adjustment of mA and/or KV based on patient size, or use of iterative reconstructive technique. FINDINGS: Bones: No fracture or bone lesion. Joints: No dislocation. Joint spaces appear preserved. Musculature: No focal abnormality seen. Other: Soft tissue edema consistent with cellulitis. Equivocal for a small developing abscess at the dorsal aspect of the proximal ring finger in the area of laceration, measuring 0.7 x 0.5 cm, for example series 8 image 50. IMPRESSION: 1. No acute osseous abnormality seen. 2. Soft tissue edema consistent with cellulitis. 3. Equivocal for tiny developing abscess in the dorsal ring finger at the area of laceration measuring 0.7 x 0.5 cm, series 8 image 50. RADIA
[2019-07-21] MEDS ORDERED: IBUPROFEN 600 MG TABLET PO PRN (22:31)
[2019-07-21] MEDS ORDERED: ACETAMINOPHEN 325 MG TABLET PO PRN (22:31)
[2019-07-21] MEDS ORDERED: SODIUM CHLORIDE FLUSH 0.9% 10 ML SYRINGE IVP PRN (22:31)
--- NOTE | 2019-07-21 22:39 | HISTORY & PHYSICAL EXAMINATION ---
Chief Complaint - Chief Complaint Chief Complaint: Hand swelling and pain History of Present Illness - Admitted From Admitted From:: Home - History Obtained From Records Reviewed: Yes History obtained from: Patient, Girlfriend, ER Physician - History of Present Illness HPI Comment/Other: This is a 23-year-old male with a past medical history significant for bipolar disorder and PTSD who presents today complaining of worsening left hand pain, swelling, and redness. He states he was needing though a few days ago while having a ring in place and he feels that he might have cut his finger. He states there was a pimple there shortly after which he popped and that he had been doing fine after that. He then noticed that on the his left hand became more red, swollen, and painful. Pain is most prominent when he attempts to bend his fingers. He reports numbness of his left fourth digit. He saw his primary care doctor and he was diagnosed with cellulitis and started on doxycycline. He states he took one tablet that evening and then returned to his primary care physician the following day due to worsening pain. He was then prescribed Toradol for pain control. He states he took the doxycycline yesterday but today despite antibiotic use, he feels the erythema continued to progress and his hand is still quite painful. He reports subjective fevers and that everything feels "warm". He denies chills, chest pain, dyspnea, abdominal pain, nausea, vomiting. He reports no history of IV drug use. He is a smoker. He reports no trauma, Bites, dog bite, human bites to the area. In the emergency department, he was hemodynamically stable. Labs revealed a white count of 13 with a normal CRP. Imaging of the left hand revealed cell ulitis with a possible small abscess over the left fourth digit. Given that his erythema and pain progressed despite oral antibiotics, medicine was consulted for admission as it was felt he would require IV antibiotics. He did receive vancomycin and Unasyn IV in the emergency department. History - Past Medical History Cardiovascular: reports: None Respiratory: reports: None Neuro: reports: None Endocrine/Autoimmune: reports: None GI: reports: None : reports: Other HEENT: reports: None Psych: reports: Bipolar disorder, Post traumatic stress disorder Musculoskeletal: reports: None Derm: reports: None MRSA Hx?: No - Family & Social History Family History Comment/Other: He reports his brother also has bipolar disorder. He reports no other family history. Living arrangement: At home Social History Notes: He is not currently employed. He does smoke half a pack to pack per day. He denies alcohol use. He reports no illicit drug use. - Substance History Use: Uses substance without health or social issues: NONE - POLST Patient has POLST: No Meds/Allgy - Home Medications Home Medications: Ambulatory Orders Medication Instructions Recorded Confirmed Clobetasol 0.05% Oint [Temovate 1 applic TOP BID PRN #1 tube 09/29/18 0.05% Oint] predniSONE [Prednisone] 40 mg PO DAILY #10 tablet 09/29/18 Aripiprazole [Abilify] 10 mg PO 07/21/19 Doxycycline Hyclate 100 mg PO 07/21/19 Ketorolac Tromethamine [Readysharp 15 mg IJ 07/21/19 Ketorolac] Meloxicam 7.5 mg PO BID 07/21/19 hydrOXYzine HCl [Hydroxyzine HCl] 25 mg PO 07/21/19 - Allergies Allergies/Adverse Reactions: Allergies Allergy/AdvReac Type Severity Reaction Status Date / Time No Known Drug Allergies Allergy Verified 07/21/19 16:58 Review of Systems - Constitutional Constitutional: reports: Fever. denies: Fatigue, Chills, Weakness, Poor appetite - Cardiovascular Cariovascular: denies: Chest pain, Exertional dyspnea, Decr. exercise tolerance - Respiratory Respiratory: denies: SOB at rest, SOB with exertion - Gastrointestinal Gastrointestinal: denies: Abdominal pain, Constipation, Diarrhea, Nausea, Vomi ting - Genitourinary Genitourinary: denies: Dysuria, Frequency, Urgency - Musculoskeletal Musculoskeletal: denies: Muscle weakness - Integumentary Integumentary: reports: Pigment changes. denies: Rash - Neurological Neurological: reports: Numbness. denies: General weakness, Focal weakness - All Other Systems All Other Systems: reports: Reviewed and negative Prior Level of Functionality: He is independent with ADLs. Exam - Vital Signs Reviewed Vital Signs: Yes Vital Signs: Vital Signs x48h Temp Pulse Resp BP Pulse Ox 07/21/19 21:29 36.8 C 72 16 126/72 98 07/21/19 16:58 36.9 C 98 15 145/72 H 97 - Physical Exam General Appearance: positive: No acute distress, Alert Eyes Bilateral: positive: Normal inspection ENT: positive: ENT inspection nml Neck: positive: Nml inspection Respiratory: positive: No respiratory distress. negative: Wheezes, Rales, Rhonchi Cardiovascular: positive: Regular rate & rhythm, No murmur. negative: Systolic murmur, Diastolic murmur Abdomen: positive: Non-tender, No distention. negative: Tenderness, Guarding, Rebound Skin: positive: No rash, Warm, Dry, Other (There is erythema of the left fourth digit from the proximal PIP to the dorsum of the hand extending about correction through the hand. There is edema and tenderness on palpation. There is also edema of the left fourth digit. Sensation is intact. There is no appreciable abscess or fluid collection. No appreciable drainage from an open wound over the left fourth digit.) Extremities: positive: Full ROM, No pedal edema Neurologic/Psychiatric: positive: Oriented x3, Other (He is able to fully extend and flex his fingers. There is limited range of motion due to edema and discomfort. Capillary refill is less than 2 seconds.). negative: Disoriented to person, Disoriented to place, Disoriented to time Conclusion/Plan - Problem List (1) Cellulitis of hand, left Conclusion/Plan: He does have significant erythema, swelling of the left hand extending from the left fourth digit to the dorsum of the hand. Imaging is consistent with cellulitis and a possible small abscess. He was being treated outpatient with doxycycline and despite this, he has had progression of his erythema and pain. He does not appear septic despite an elevated white count. His CRP is normal. He has received vancomycin and Unasyn IV in the emergency department. We will continue vancomycin IV . Check CBC in the morning. Blood cultures were not obtained prior to initiation of antibiotics and I do not feel that they are warranted as he appears nontoxic. Will hope to discharge him on oral Bactrim. (2) Bipolar disorder Conclusion/Plan: Stable. Continue Abilify. (3) PTSD (post-traumatic stress disorder) Conclusion/Plan: Stable. Continue hydroxyzine as needed. - Lab Results Lab results reviewed: Yes Fish Bones: 07/21/19 19:15 07/21/19 19:15 - Diagnostic Imaging Results Diagnostic Imaging Results: positive: Final report reviewed Core Measures - Anticipated LOS I expect patient to be DC'd or transferred within 96 hours.: Yes - Issues Hospital Issues and Management Plan: Cellulitis of the left hand that failed outpatient treatment with doxycycline. Will admit overnight for IV antibiotics. - DVT/VTE - Prophylaxis VTE/DVT Device ordered at admit?: Yes VTE/DVT Prophylaxis med ordered at admit?: No Not Ordered - Medical Reason: Not indicated
[2019-07-21] MEDS ORDERED: hydrOXYzine PAMOATE 25 MG CAPSULE PO PRN (22:59)
[2019-07-22] MEDS: SODIUM CHLORIDE FLUSH 0.9% 10 ML SYRINGE IVP SCH ×2 (00:11→09:24)
[2019-07-22 05:25] LABS: BASOPHILS % (AUTO) 0.2 %; EOSINOPHILS # (AUTO) 0.6 10^3/uL (0.0-0.7); EOSINOPHILS % (AUTO) 6.3 %; HGB - HEMOGLOBIN 13.7 g/dL (14.0-18.0); LYMPHOCYTES # (AUTO) 2.4 10^3/uL (1.5-3.5); MEAN CORPUSCULAR HEMOGLOBIN 27.6 pg (27.0-31.0); MEAN CORPUSCULAR HGB CONC 31.5 g/dL (32.0-36.0); MEAN CORPUSCULAR VOLUME 87.7 fL (80.0-94.0); MONOCYTES # (AUTO) 0.8 10^3/uL (0.0-1.0); MONOCYTES % (AUTO) 8.5 %; NEUTROPHILS # (AUTO) 5.7 10^3/uL (1.5-6.6); NEUTROPHILS % (AUTO) 59.4 %; PLT - PLATELET COUNT 259 10^3/uL (130-450); RED BLOOD COUNT 4.96 10^6/uL (4.70-6.10); RED CELL DISTRIBUTION WIDTH 13.3 % (12.0-15.0); WHITE BLOOD COUNT 9.6 x10^3/uL (4.8-10.8)
[2019-07-22 05:42] LABS: CALCIUM 8.7 mg/dL (8.5-10.3); CREATININE 0.8 mg/dL (0.6-1.2)
[2019-07-22] MEDS ORDERED: VANCOMYCIN INJ 1 GM, VANCOMYCIN INJ 250 MG in SODIUM CHLORIDE 0.9% 250 ML IV SCH (09:00)
[2019-07-22] MEDS ORDERED: VANCOMYCIN INJ 1.5 GM in SODIUM CHLORIDE 0.9% 500 ML IV SCH (09:00)
--- NOTE | 2019-07-22 12:03 | Discharge Plan ---
Discharge Plan Problem Reviewed?: Yes Disposition: Home, Self Care Condition: Stable Prescriptions: Sulfamethox/Trimeth 800/160 [Bactrim Ds 800/160] 1 each PO BID #14 tablet Diet: Regular Activity Restrictions: Activity as Tolerated Shower Restrictions: No Driving Restrictions: No Instruction Topics: Cellulitis Dc Health Concerns: You were here for several doses of iv antibiotics then a change in oral antibiotic for the hand infection. Plan of Treatment: Finish the course of antibiotic, a new prescription for Bactrim was ordered and e-sent to [facility]. Keep your arm raised to help decrease the swelling. Put warm, wet soaks over the reddest part, to help it drain. Use Tylenol or Ibuprofen to treat pain. See your PCP next week for follow-up. Resume all your usual medications. Care Goals: Improvement in symptoms and healing of cellulitis. Assessment: The patient is agreeable with the plan. No Smoking: If you smoke, Please STOP! Call for help. Follow-up with: Anjel Richards MD [Primary Care Provider] -
[2019-07-22 13:17] VITALS: BP 130/73
--- NOTE | 2019-07-22 17:05 | DISCHARGE SUMMARY ---
Discharge Summary Admit Date: 07/21/19 Discharge Date: 07/22/19 Discharging Provider: Dr Kenyetta Wolfe Primary Care Provider: Dr Adolfo Richards Code Status: Attempt Resuscitation Condition at Discharge: Stable Discharge Disposition: 01 Home, Self Care - DIAGNOSES Admission Diagnoses: 1) Cellulitis of left hand 2) Bipolar disorder 3) PTSD Discharge Diagnoses with Status of Each Condition: See below - HPI History of Present Illness: From the admission H&P of Dr Guillermo Caldwell: This is a 23-year-old male with a past medical history significant for bipolar disorder and PTSD who presents today complaining of worsening left hand pain, swelling, and redness. He states he was needing though a few days ago while having a ring in place and he feels that he might have cut his finger. He st ates there was a pimple there shortly after which he popped and that he had been doing fine after that. He then noticed that on the his left hand became more red, swollen, and painful. Pain is most prominent when he attempts to bend his fingers. He reports numbness of his left fourth digit. He saw his primary care doctor and he was diagnosed with cellulitis and started on doxycycline. He states he took one tablet that evening and then returned to his primary care physician the following day due to worsening pain. He was then prescribed Toradol for pain control. He states he took the doxycycline yesterday but today despite antibiotic use, he feels the erythema continued to progress and his hand is still quite painful. He reports subjective fevers and that everything feels "warm". He denies chills, chest pain, dyspnea, abdominal pain, nausea, vomiting. He reports no history of IV drug use. He is a smoker. He reports no trauma, Bites, dog bite, human bites to the area. In the emergency department, he was hemodynamically stable. Labs revealed a white count of 13 with a normal CRP. Imaging of the left hand revealed cellulitis with a possible small abscess over the left fourth digit. Given that his erythema and pain progressed despite oral antibiotics, medicine was c onsulted for admission as it was felt he would require IV antibiotics. He did receive vancomycin and Unasyn IV in the emergency department. - HOSPITAL COURSE Hospital Course: (1) Cellulitis of hand, left He did have significant erythema, swelling of the left hand extending from the left fourth digit to the dorsum of the hand. Imaging was consistent with cellulitis and a possible small abscess despite outpatient Doxycycline tristen tment. He did not appear septic despite an elevated white count. His CRP was normal. He received vancomycin and Unasyn IV in the emergency department. and was continued on 2 days of vancomycin IV. Blood cultures were not obtained prior to initiation of antibiotics. The central area came to a head and had serosanguinous discharge. He felt better and was discharge on oral Bactrim. (2) Bipolar disorder Stable on Abilify. (3) PTSD (post-traumatic stress disorder) Stable on Hydroxyzine as needed. - ALLERGIES Allergies/Adverse Reactions: Allergies Allergy/AdvReac Type Severity Reaction Status Date / Time No Known Drug Allergies Allergy Verified 07/21/19 16:58 - MEDICATIONS Home Medications: Ambulatory Orders Medication Instructions Recorded Confirmed Aripiprazole [Abilify] 10 mg PO QPM 07/21/19 07/22/19 Meloxicam 7.5 mg PO BID 07/21/19 hydrOXYzine HCl [Hydroxyzine HCl] 50 mg PO TID 07/21/19 07/22/19 Sulfamethox/Trimeth 800/160 1 each PO BID #14 tablet 07/22/19 [Bactrim Ds 800/160] - PHYSICAL EXAM AT DISCHARGE General Appearance: positive: No acute distress, Alert Eyes Bilateral: positive: Normal inspection ENT: positive: ENT inspection nml, No signs of dehydration Neck: positive: Nml inspection, No JVD Respiratory: positive: No respiratory distress, Breath sounds nml Cardiovascular: positive: Regular rate & rhythm Abdomen: positive: Non-tender, No distention Skin: positive: Color nml Extremities: positive: Other (Left hand localized redness, but only swollen where the wound had come to a head) Neurologic/Psychiatric: positive: Oriented x3, Other (Non-focal exam) - LABS Result Diagrams: 07/22/19 05:05 07/22/19 05:05 - DIAGNOSTIC IMAGING Diagnostic Imaging Results: Final report reviewed - FOLLOW UP Follow Up: See PCP in the upcoming week. - TIME SPENT Time Spent in Discharge (Minutes): 30
== END 2019-07-22 13:40 | disposition home or self-care (01) ==
LOC: ED 16:25 → MS3 22:31
PROVIDERS: ADMIT Internal Medicine; ATTEND Internal Medicine
DX: L03.012 Cellulitis of left finger (principal); S61.205A Unspecified open wound of left ring finger without damage to nail, initial encounter; X50.3XXA Overexertion from repetitive movements, initial encounter; F31.9 Bipolar disorder, unspecified; F43.10 Post-traumatic stress disorder, unspecified; F17.210 Nicotine dependence, cigarettes, uncomplicated; Z79.899 Other long term (current) drug therapy
CPT/HCPCS: 36415; 73120; 73201; 80048; 85025; 86140; 87070; 87181; 87205; 96365; 96366; 96368; 99284; 99285; 99406; A9270; G0378; J3370; Q9967

== ENCOUNTER 2019-10-11 14:51 | Outpatient (CLI) | payer MEDICAID ==
[2019-10-11 17:15] LABS: BASOPHILS % (AUTO) 0.3 %; EOSINOPHILS # (AUTO) 0.3 10^3/uL (0.0-0.7); EOSINOPHILS % (AUTO) 3.2 %; HGB - HEMOGLOBIN 16.5 g/dL (14.0-18.0); LYMPHOCYTES # (AUTO) 2.2 10^3/uL (1.5-3.5); LYMPHOCYTES % (AUTO) 28.1 %; MEAN CORPUSCULAR HEMOGLOBIN 28.3 pg (27.0-31.0); MEAN CORPUSCULAR HGB CONC 33.5 g/dL (32.0-36.0); MEAN CORPUSCULAR VOLUME 84.4 fL (80.0-94.0); MEAN PLATELET VOLUME 10.3 fL (7.4-11.4); MONOCYTES # (AUTO) 0.6 10^3/uL (0.0-1.0); MONOCYTES % (AUTO) 7.9 %; NEUTROPHILS # (AUTO) 4.7 10^3/uL (1.5-6.6); NEUTROPHILS % (AUTO) 60.2 %; PLT - PLATELET COUNT 284 10^3/uL (130-450); RED BLOOD COUNT 5.83 10^6/uL (4.70-6.10); RED CELL DISTRIBUTION WIDTH 12.7 % (12.0-15.0); WHITE BLOOD COUNT 7.8 x10^3/uL (4.8-10.8)
[2019-10-11 17:33] LABS: ALBUMIN 4.6 g/dL (3.2-5.5); ALBUMIN/GLOBULIN RATIO 1.5 (1.0-2.2); ALKALINE PHOSPHATASE 57 IU/L (42-121); ALT ALANINE AMINOTRANSFERASE 20 IU/L (10-60); AST ASPARTATE AMINOTRANSFERASE 23 IU/L (10-42); BILIRUBIN,TOTAL 0.7 mg/dL (0.2-1.0); BUN - BLOOD UREA NITROGEN 18 mg/dL (6-20); CALCIUM 9.3 mg/dL (8.5-10.3); CARBON DIOXIDE - CO2 29 mmol/L (21-32); CHLORIDE 103 mmol/L (101-111); CREATININE 0.9 mg/dL (0.6-1.2); GFR - MDRD 105 (>89); GLUCOSE 88 mg/dL (70-100); SODIUM 141 mmol/L (135-145); TOTAL PROTEIN 7.6 g/dL (6.7-8.2); URIC ACID 5.6 mg/dL (2.6-7.2)
[2019-10-11 17:44] LABS: CRP - C-REACTIVE PROTEIN < 1.0 mg/dL (0-1.0)
[2019-10-11 17:50] LABS: RHEUMATOID FACTOR NEGATIVE (Negative)
[2019-10-13 11:32] LABS: ANA SCREEN NEGATIVE (NEGATIVE)
== END 2019-10-11 14:52 | disposition home or self-care (01) ==
LOC: LAB.S 14:51
PROVIDERS: ATTEND Internal Medicine
DX: M25.50 Pain in unspecified joint (principal)
CPT/HCPCS: 36415; 80053; 84550; 85025; 85613; 85651; 85730; 86038; 86140; 86146; 86147; 86200; 86430

== ENCOUNTER 2020-04-30 09:47 | Outpatient (CLI) | payer MEDICAID, OTHER ==
[2020-04-30 15:13] LABS: BASOPHILS % (AUTO) 0.5 %; EOSINOPHILS # (AUTO) 0.4 10^3/uL (0.0-0.7); EOSINOPHILS % (AUTO) 5.2 %; HGB - HEMOGLOBIN 16.1 g/dL (14.0-18.0); LYMPHOCYTES # (AUTO) 1.4 10^3/uL (1.5-3.5); LYMPHOCYTES % (AUTO) 18.2 %; MEAN CORPUSCULAR HEMOGLOBIN 29.3 pg (27.0-31.0); MEAN CORPUSCULAR HGB CONC 33.6 g/dL (32.0-36.0); MEAN CORPUSCULAR VOLUME 87.1 fL (80.0-94.0); MONOCYTES # (AUTO) 0.6 10^3/uL (0.0-1.0); NEUTROPHILS % (AUTO) 67.7 %; PLT - PLATELET COUNT 276 10^3/uL (130-450); RED CELL DISTRIBUTION WIDTH 12.8 % (12.0-15.0); WHITE BLOOD COUNT 7.5 x10^3/uL (4.8-10.8)
[2020-04-30 15:42] LABS: ALBUMIN 4.3 g/dL (3.2-5.5); ALBUMIN/GLOBULIN RATIO 1.5 (1.0-2.2); ALKALINE PHOSPHATASE 62 IU/L (42-121); ALT ALANINE AMINOTRANSFERASE 18 IU/L (10-60); AST ASPARTATE AMINOTRANSFERASE 24 IU/L (10-42); BILIRUBIN,TOTAL 0.7 mg/dL (0.2-1.0); BUN - BLOOD UREA NITROGEN 17 mg/dL (6-20); CALCIUM 9.4 mg/dL (8.5-10.3); CARBON DIOXIDE - CO2 27 mmol/L (21-32); CHLORIDE 101 mmol/L (101-111); CHOL/HDL RATIO 6.4 (<5.0); CHOLESTEROL 199 mg/dL; GLUCOSE 92 mg/dL (70-100); HDL CHOLESTEROL 31 mg/dL; SODIUM 137 mmol/L (135-145); TOTAL PROTEIN 7.2 g/dL (6.7-8.2)
[2020-04-30 15:51] LABS: THYROID STIMULATING HORMONE 1.24 uIU/mL (0.34-5.60)
[2020-04-30 15:53] LABS: FREE T4 (FREE THYROXINE) 0.76 ng/dL (0.58-1.64)
[2020-04-30 16:02] LABS: LDL CHOLESTEROL,DIRECT 94 mg/dL
== END 2020-04-30 09:48 | disposition home or self-care (01) ==
LOC: LAB.S 09:47
PROVIDERS: ATTEND Nurse Practitioner Psychiatric/Mental Health
DX: F20.0 Paranoid schizophrenia (principal); F20.1 Disorganized schizophrenia
CPT/HCPCS: 36415; 80053; 80061; 80307; 81599; 83721; 84439; 84443; 85025

== ENCOUNTER 2020-09-01 21:52 | Emergency (ER) | payer OTHER ==
--- NOTE | 2020-09-01 22:53 | ED Physician Documentation ---
PD HPI UPPER EXT INJURY - Stated complaint Stated Complaint: LT FINGER PX - Chief complaint Chief Complaint: Ext Problem - History obtained from History obtained from: Patient - Additonal information Additional information: Patient comes emergency department chief complaint of left middle finger pain after an injury 2 months ago during which the patient dropped a mixing bowl on his finger. Patient states he has had some pain ever since and that he is also noticed skin changes on the finger which are concerning to him. He states that today, he was trying to put on his seatbelt and that his finger rubbed over the metal edge of the seatbelt and he felt a sensation as though his finger was being cut. Patient states he is pretty sure that the nerves and of his finger are and that perhaps there was an injury that he could not recognize. The patient states he is schizophrenic and he worries about things like this. The patient has noticed cracking of the skin over his DIP joints on the dorsal surface. No new injuries otherwise. No redness or progressive swelling of the fingers. No other complaints at this time. Review of Systems Ten Systems: 10 systems reviewed and negative Constitutional: reports: Reviewed and negative Eyes: reports: Reviewed and negative Ears: reports: Reviewed and negative Nose: reports: Reviewed and negative Throat: reports: Reviewed and negative Cardiac: reports: Reviewed and negative Respiratory: reports: Reviewed and negative GI: reports: Reviewed and negative : reports: Reviewed and negative Skin: reports: Reviewed and negative Musculoskeletal: reports: Reviewed and negative Neurologic: reports: Reviewed and negative Psychiatric: reports: Reviewed and negative Endocrine: reports: Reviewed and negative Immunocompromised: reports: Reviewed and negative PD PAST MEDICAL HISTORY - Past Medical History Cardiovascular: None Respiratory: None Neuro: None Endocrine/Autoimmune: None GI: None : Other HEENT: None Psych: Bipolar disorder, Post traumatic stress disorder Musculoskeletal: None Derm: None - Past Surgical History Past Surgical History: Yes - Present Medications Home Medications: Ambulatory Orders Medication Instructions Recorded Confirmed Meloxicam 7.5 mg PO BID 07/21/19 06/13/20 Aripiprazole [Abilify Maintena] 400 mg IM ONCE 06/13/20 06/13/20 Citalopram [CeleXA] 10 mg PO DAILY 06/13/20 06/13/20 Hydrocortisone 1% Oint 28 gm TP BID PRN #1 oint...g. 09/01/20 [Hydrocortisone] - Allergies Allergies/Adverse Reactions: Allergies Allergy/AdvReac Type Severity Reaction Status Date / Time oxycodone AdvReac Unknown Verified 09/01/20 21:58 - Social History Does the pt smoke?: Yes Smoking Status: Current every day smoker Does the pt drink ETOH?: Yes Does the pt have substance abuse?: No - Immunizations Immunizations are current?: Yes - POLST Patient has POLST: No Results - Vitals Vitals: Vital Signs - 24 hr 09/01/20 09/01/20 21:58 23:09 Temperature 36.5 C 36.5 C Heart Rate 58 L 55 L Respiratory 16 14 Rate Blood Pressure 135/69 H 118/69 O2 Saturation 98 98 Oxygen O2 Source Room air - Rads (name of study) L fingers XR Radiology: Final report received, EMP read indepedently, See rad report (neg) PD MEDICAL DECISION MAKING - ED course Complexity details: considered differential, d/w patient ED course: I discussed with the patient that he appears to have eczema on his fingers, but his x-ray is negative and shows no evidence of a fracture. We have discussed symptomatic management at home. I will prescribe the patient some hydrocortisone cream to help resolve his current eczema flare, and after this, I have advised him that he should use a thick lotion to help keep the skin moisturized and prevent further eczema outbreaks. We have discussed the need for follow-up and the usual indications for return. Departure - Departure Disposition: 01 Home, Self Care Clinical Impression: Acute eczema, Finger pain, left Condition: Stable Instructions: Hydrocortisone skin cream ointment lotion or solution, ED Dermatitis Atopic Eczema Prescriptions: Hydrocortisone 1% Oint [Hydrocortisone] 28 gm TP BID PRN #1 oint...g. PRN Reason: Dry Skin Comments: Your x-rays look good. There is no evidence of a broken bone in any of your fingers. It is not clear why you continue to have pain in this finger. You do have findings of eczema on your skin, and this may be part of the reason you have a little swelling and pain, given that your skin is cracked right over the joint. Please apply the hydrocortisone cream that has been prescribed for you, and after this, please use a thick cream to help with moisturizing. You may use ibuprofen and Tylenol to help with the discomfort in your finger otherwise. Discharge Date/Time: 09/01/20 23:11
[2020-09-01 23:10] VITALS: BP 118/69
--- NOTE | 2020-09-02 08:26 | XRAY Report ---
PROCEDURE: Finger(s) LT INDICATIONS: pain/injury TECHNIQUE: AP hand, 3 views of the third finger(s) acquired. COMPARISON: Left hand plain films 07/21/2019. FINDINGS: Bones: No fractures or dislocations. No suspicious bony lesions. Soft tissues: No suspicious soft tissue calcifications. IMPRESSION: No trauma found. Reviewed by: Tenzin Naqvi MD on 09/02/2020 8:24 AM [facility] Approved by: Tenzin Naqvi MD on 09/02/2020 8:24 AM [facility] Station ID: [id number]
== END 2020-09-01 23:11 | disposition home or self-care (01) ==
LOC: ED 21:52
DX: L30.9 Dermatitis, unspecified (principal); M79.645 Pain in left finger(s); F17.200 Nicotine dependence, unspecified, uncomplicated
CPT/HCPCS: 99283

== ENCOUNTER 2020-11-25 04:22 | Emergency (ER) | payer OTHER ==
--- NOTE | 2020-11-25 04:32 | ED Physician Documentation ---
PD HPI ABD PAIN - Stated complaint Stated Complaint: R FLANK PX - Chief complaint Chief Complaint: Abd Pain - History obtained from History obtained from: Patient - History of Present Illness Timing - onset: How many months ago (1) Timing - details: Abrupt onset, Intermittant Pain level max: 6 Pain level now: 3 Quality: Pain Radiation: Right flank Associated symptoms: Hematochezia (one episode of BRBPR this morning). No: Fever, Nausea, Vomiting, Diarrhea, Constipation Recently seen: Not recently seen - Additional information Additional information: c/o one month of intermittent right flank pain radiating to right hip and RLQ. no apparent exacerbating or ameliorating factors, but he is more aware of the discomfort at night when he is not distracted with ADLs. this morning he had one episode of BRBPR Review of Systems Constitutional: reports: Reviewed and negative GI: reports: Abdominal Pain, Bloody / black stool. denies: Nausea, Vomiting, Constipation, Diarrhea : denies: Dysuria, Frequency, Testicular pain Skin: denies: Rash PD PAST MEDICAL HISTORY - Past Medical History Cardiovascular: None Respiratory: None Neuro: None Endocrine/Autoimmune: None GI: None : Other HEENT: None Psych: Bipolar disorder, Post traumatic stress disorder Musculoskeletal: None Derm: None - Past Surgical History Past Surgical History: Yes - Present Medications Home Medications: Ambulatory Orders Medication Instructions Recorded Confirmed Aripiprazole [Abilify Maintena] 400 mg IM ONCE 06/13/20 06/13/20 - Allergies Allergies/Adverse Reactions: Allergies Allergy/AdvReac Type Severity Reaction Status Date / Time oxycodone AdvReac Unknown Verified 11/25/20 04:32 - Social History Does the pt smoke?: Yes Smoking Status: Current every day smoker Does the pt drink ETOH?: Yes Does the pt have substance abuse?: No - Immunizations Immunizations are current?: Yes - POLST Patient has POLST: No PD ED PE NORMAL - Vitals Vital signs reviewed: Yes - General General: Alert and oriented X 3, No acute distress, Well developed/nourished - Cardiac Cardiac: No murmur - Respiratory Respiratory: No respiratory distress, Clear bilaterally - Abdomen Abdomen: Soft, Non distended, Other (minimal TTP lateral-most aspect of RLQ without rebound or guarding) - Back Back: No CVA TTP - Derm Derm: No rash - Extremities Extremities: No tenderness to palpate, Normal ROM s pain Results - Vitals Vitals: Vital Signs - 24 hr 11/25/20 11/25/20 11/25/20 04:25 06:45 07:40 Temperature 36.4 C L 36.9 C Heart Rate 68 63 64 Respiratory 16 18 16 Rate Blood Pressure 132/82 H 131/83 H 117/66 O2 Saturation 97 96 95 Oxygen O2 Source Room air - Labs Labs: Laboratory Tests 11/25/20 11/25/20 11/25/20 04:35 05:13 05:13 WBC 8.2 RBC 5.60 Hgb 16.3 Hct 48.6 MCV 86.8 MCH 29.1 MCHC 33.5 RDW 12.8 Plt Count 225 MPV 9.5 Neut # (Auto) 5.4 Lymph # (Auto) 1.6 Duval # (Auto) 0.7 Eos # (Auto) 0.4 Baso # (Auto) 0.0 Absolute Nucleated RBC 0.00 Nucleated RBC % 0.0 Sodium 135 Potassium 4.0 Chloride 98 L Carbon Dioxide 27 Anion Gap 10.0 BUN 16 Creatinine 0.9 Estimated GFR (MDRD) 104 Glucose 100 Calcium 9.1 Total Bilirubin 0.7 AST 18 ALT 22 Alkaline Phosphatase 52 Total Protein 7.1 Albumin 4.2 Globulin 2.9 Albumin/Globulin Ratio 1.4 Lipase 97 H Urine Color YELLOW Urine Clarity CLEAR Urine pH 6.0 Ur Specific [place] 1.025 Urine Protein NEGATIVE Urine Glucose (UA) NEGATIVE Urine Ketones NEGATIVE Urine Occult Blood NEGATIVE Urine Nitrite NEGATIVE Urine Bilirubin NEGATIVE Urine Urobilinogen 0.2 (NORMAL) Ur Leukocyte Esterase NEGATIVE Ur Microscopic Review NOT INDICATED Urine Culture Comments NOT INDICATED - Rads (name of study) CT A/P with IV contrast Radiology: Prelim report reviewed, See rad report PD MEDICAL DECISION MAKING - ED course Complexity details: reviewed old records, reviewed results, re-evaluated patient, considered differential, d/w patient ED course: unremarkable blood tests (mildly elevated lipase noted but symptoms and abd exam do not correlate with acute pancreatic pathology) and normal UA. kidney stone, hernia are considered, as well as appendicits (unlikely given description of time course, but he reports worsening x 2 days and has mild RLQ tenderness), and thus CT undertaken with reassuring results. there is possible (equivocal) left hemicolon wall thickening on CT which does not correlate with area of discomfort, although mild colitis could be etiology of hematochezia. given his normal CBC and that the hematochezia has only been one episode, further emergent testing / treatment not indicated at this time Departure - Departure Disposition: 01 Home, Self Care Clinical Impression: Abdominal pain Qualifiers: Abdominal location: right lower quadrant Qualified Code(s): R10.31 - Right lower quadrant pain Condition: Good Instructions: ED Abdominal Pain Unkn Cause Male Follow-Up: Lurdes Luther ARNP [Primary Care Provider] - Discharge Date/Time: 11/25/20 07:42
[2020-11-25 04:45] LABS: BILIRUBIN,URINE NEGATIVE (NEGATIVE); GLUCOSE, URINE (UA) NEGATIVE (NEGATIVE); KETONES,URINE (UA) NEGATIVE (NEGATIVE); LEUKOCYTE ESTERASE, URINE NEGATIVE (NEGATIVE); NITRITE,URINE NEGATIVE (NEGATIVE); OCCULT BLOOD,URINE NEGATIVE (NEGATIVE); PROTEIN,URINE NEGATIVE (NEGATIVE); UROBILINOGEN,URINE 0.2 (NORMAL) E.U./dL (NORMAL)
[2020-11-25 04:46] LABS: CLARITY,URINE CLEAR (CLEAR)
[2020-11-25 05:17] LABS: BASOPHILS % (AUTO) 0.2 %; EOSINOPHILS # (AUTO) 0.4 10^3/uL (0.0-0.7); EOSINOPHILS % (AUTO) 4.9 %; HCT - HEMATOCRIT 48.6 % (42.0-52.0); HGB - HEMOGLOBIN 16.3 g/dL (14.0-18.0); LYMPHOCYTES # (AUTO) 1.6 10^3/uL (1.5-3.5); LYMPHOCYTES % (AUTO) 19.9 %; MEAN CORPUSCULAR HEMOGLOBIN 29.1 pg (27.0-31.0); MEAN CORPUSCULAR HGB CONC 33.5 g/dL (32.0-36.0); MEAN CORPUSCULAR VOLUME 86.8 fL (80.0-94.0); MEAN PLATELET VOLUME 9.5 fL (7.4-11.4); MONOCYTES # (AUTO) 0.7 10^3/uL (0.0-1.0); MONOCYTES % (AUTO) 8.7 %; NEUTROPHILS # (AUTO) 5.4 10^3/uL (1.5-6.6); NEUTROPHILS % (AUTO) 65.9 %; PLT - PLATELET COUNT 225 10^3/uL (130-450); RED CELL DISTRIBUTION WIDTH 12.8 % (12.0-15.0); WHITE BLOOD COUNT 8.2 x10^3/uL (4.8-10.8)
[2020-11-25 05:31] LABS: ALBUMIN 4.2 g/dL (3.2-5.5); ALBUMIN/GLOBULIN RATIO 1.4 (1.0-2.2); BILIRUBIN,TOTAL 0.7 mg/dL (0.2-1.0); CALCIUM 9.1 mg/dL (8.5-10.3); CREATININE 0.9 mg/dL (0.6-1.2); TOTAL PROTEIN 7.1 g/dL (6.7-8.2)
[2020-11-25] MEDS ORDERED: IOVERSOL 320 100 ML VIAL IVP ONE ×2 (05:37→06:21)
[2020-11-25 07:41] VITALS: BP 117/66
--- NOTE | 2020-11-25 08:29 | CT Report ---
PROCEDURE: Abdomen/Pelvis W INDICATIONS: RLQ pain, tenderness TECHNIQUE: After the administration of intravenous contrast, 5 mm thick sections acquired from the diaphragms to the symphysis. 2.5 mm thick coronal and sagittal reformats were acquired. Optional 10-minute delay ed imaging may be performed from the kidneys to the bladder. For radiation dose reduction, the follo wing was used: automated exposure control, adjustment of mA and/or kV according to patient size. COMPARISON: Retroperitoneal ultrasound 01/18/2016 FINDINGS: Image quality: Excellent. ABDOMEN: Lung bases: Lung bases are clear. Heart size is normal. No pericardial effusion. Inferior ribs ar e intact. No basal pleural effusions or pneumothorax. Solid organs: Liver is enlarged with steatosis. It is noted that the hepatic dome is not fully inclu ded within the [id number] and is not evaluated on current exam. Gallbladder is unremarkable. Bili shivam system is non-dilated. Pancreas enhances normally. Spleen is normal in size and enhancement. N o adrenal hematomas. Both kidneys enhance normally, without hydronephrosis. Peritoneum and bowel: No free fluid or air. Unenhanced bowel loops demonstrate minimal appearance o f thickening and questioning stranding within the left lower quadrant. Bowel loops are also incomplet jelena distended. The appendix is normal. Nodes and vessels: No retroperitoneal or mesenteric adenopathy. Aorta and inferior vena cava are no rmal in size and enhancement. Miscellaneous: No ventral hernias. Multiple metallic densities are noted within the left hemiabdome n and pelvis suggestive of gonadal vein embolization coils. PELVIS: Genitourinary: Bladder wall thickness is normal. Miscellaneous: No inguinal hernias or adenopathy. Bones: Pelvic ring and hip joints appear intact. No vertebral compression fractures. IMPRESSION: 1. Appendix is normal. No right lower quadrant inflammatory change. 2. Questionable minimal appearance of descending colon thickening with minimal pericolonic stranding. It is also incompletely distended, limiting evaluation. Clinical correlation of pain within this reg ion is recommended as very early colitis cannot be definitively excluded. The above findings are concordant with preliminary report. Reviewed by: Linda Kelly MD on 11/25/2020 8:28 AM PDT Approved by: Linda Kelly MD on 11/25/2020 8:28 AM PDT Station ID: [id number]
== END 2020-11-25 07:42 | disposition home or self-care (01) ==
LOC: ED 04:22
DX: R10.31 Right lower quadrant pain (principal); K92.1 Melena; R74.8 Abnormal levels of other serum enzymes; F17.200 Nicotine dependence, unspecified, uncomplicated
CPT/HCPCS: 36415; 74177; 80053; 81003; 83690; 85025; 99284; Q9967; 81001; 87086

== ENCOUNTER 2020-11-29 08:43 | Outpatient (CLI) | payer OTHER ==
[2020-11-29 08:48] LABS: MUDS CUTOFF CONCENTRATIONS CUTOFF CONC BELOW:
[2020-11-29 15:18] LABS: AMPHETAMINE SCREEN,URINE NEGATIVE (NEGATIVE); BARBITURATE SCREEN,UR NEGATIVE (NEGATIVE); BENZODIAZEPINES SCREEN, URINE NEGATIVE (NEGATIVE); COCAINE SCREEN URINE NEGATIVE (NEGATIVE); METHADONE SCREEN, URINE NEGATIVE (NEGATIVE); METHAMPHETAMINES SCREEN, URINE NEGATIVE (NEGATIVE); OPIATE SCREEN, URINE NEGATIVE (NEGATIVE); OXYCODONE SCREEN, URINE NEGATIVE (NEGATIVE); PROPOXYPHENE SCREEN, URINE NEGATIVE (NEGATIVE); THC CANNABINOID SCREEN, URINE POSITIVE (NEGATIVE); TRICYCLIC ANTIDEPRESSANT,URINE NEGATIVE (NEGATIVE)
[2020-11-29 15:29] LABS: BASOPHILS % (AUTO) 0.4 %; EOSINOPHILS # (AUTO) 0.3 10^3/uL (0.0-0.7); EOSINOPHILS % (AUTO) 4.6 %; HCT - HEMATOCRIT 51.1 % (42.0-52.0); LYMPHOCYTES # (AUTO) 1.7 10^3/uL (1.5-3.5); LYMPHOCYTES % (AUTO) 24.2 %; MEAN CORPUSCULAR HEMOGLOBIN 28.9 pg (27.0-31.0); MEAN CORPUSCULAR HGB CONC 33.3 g/dL (32.0-36.0); MEAN CORPUSCULAR VOLUME 86.9 fL (80.0-94.0); MEAN PLATELET VOLUME 10.2 fL (7.4-11.4); MONOCYTES # (AUTO) 0.6 10^3/uL (0.0-1.0); MONOCYTES % (AUTO) 9.1 %; NEUTROPHILS # (AUTO) 4.2 10^3/uL (1.5-6.6); NEUTROPHILS % (AUTO) 61.4 %; PLT - PLATELET COUNT 299 10^3/uL (130-450); RED BLOOD COUNT 5.88 10^6/uL (4.70-6.10); WHITE BLOOD COUNT 6.9 x10^3/uL (4.8-10.8)
[2020-11-29 16:00] LABS: ALBUMIN 4.7 g/dL (3.2-5.5); ALBUMIN/GLOBULIN RATIO 1.6 (1.0-2.2); ALKALINE PHOSPHATASE 55 IU/L (42-121); ALT ALANINE AMINOTRANSFERASE 21 IU/L (10-60); AST ASPARTATE AMINOTRANSFERASE 22 IU/L (10-42); BILIRUBIN,TOTAL 0.7 mg/dL (0.2-1.0); BUN - BLOOD UREA NITROGEN 18 mg/dL (6-20); CALCIUM 9.4 mg/dL (8.5-10.3); CARBON DIOXIDE - CO2 26 mmol/L (21-32); CHLORIDE 103 mmol/L (101-111); CHOL/HDL RATIO 4.6 (<5.0); CHOLESTEROL 173 mg/dL; CREATININE 0.9 mg/dL (0.6-1.2); GFR - MDRD 104 (>89); GLUCOSE 106 mg/dL (70-100); HDL CHOLESTEROL 38 mg/dL; LDL CHOLESTEROL,CALCULATED 114 mg/dL; POTASSIUM 4.1 mmol/L (3.5-5.0); SODIUM 138 mmol/L (135-145); TOTAL PROTEIN 7.6 g/dL (6.7-8.2); TRIGLYCERIDES 105 mg/dL; VLDL CHOLESTEROL 21 mg/dL
--- OUTSIDE RECORDS SUMMARY | 2020-12-04 01:36 | EXTERNAL MEDICAL SUMMARY RPT | Continuity of Care Document ---
:1995 Demographics Phone Unavailable Preferred Language Unknown Marital Status Unknown Spiritism Affiliation Unknown Race Unknown Ethnic Group Unknown Author Organization [facility] Address [address] [place] [address] Phone Social History date description facility [phone]
== END 2020-11-29 08:44 | disposition home or self-care (01) ==
LOC: LAB.S 08:43
DX: F20.0 Paranoid schizophrenia (principal); F20.1 Disorganized schizophrenia
CPT/HCPCS: 36415; 80053; 80061; 80306; 83721; 84443; 85025

== ENCOUNTER 2020-12-04 13:03 | Outpatient (CLI) | payer OTHER | END 2020-12-04 13:04 | disposition home or self-care (01) | LOC: COV 13:03 | PROVIDERS: ATTEND Family Medicine | DX: R19.7 Diarrhea, unspecified (principal); R11.2 Nausea with vomiting, unspecified; Z20.822 Contact with and (suspected) exposure to COVID-19 ==

== ENCOUNTER 2021-02-18 19:22 | Emergency (ER) | payer OTHER ==
[2021-02-18 19:33] VITALS: BP 135/81
--- NOTE | 2021-02-18 20:53 | ED Physician Documentation ---
History of Present Illness - Stated complaint Stated Complaint: LT FINGER PX/SWELLING - Chief complaint Chief Complaint: Ext Problem - Additonal information Additional information: 25-year-old male comes to the emergency department for evaluation of an intermittent but recurring rash on his left middle and index finger. This has been a recurring problem for many years. He is now homeless and living in his vehicle and he states that inability to keep his hands clean has made it worse. He also feels that he has had worms coming out of the tip of his middle finger and thinks he has a warm infection. He does have a history of schizophrenia but is compliant with his Abilify as well as monthly injections. Review of Systems Constitutional: reports: Reviewed and negative Eyes: reports: Reviewed and negative Nose: reports: Reviewed and negative Throat: reports: Reviewed and negative Cardiac: reports: Reviewed and negative Respiratory: reports: Reviewed and negative GI: reports: Reviewed and negative : reports: Reviewed and negative Skin: reports: Reviewed and negative PD PAST MEDICAL HISTORY - Past Medical History Past Medical History: Yes Cardiovascular: None Respiratory: None Neuro: None Endocrine/Autoimmune: None GI: None : Other HEENT: None Psych: Bipolar disorder, Schizophrenia, Post traumatic stress disorder Musculoskeletal: None Derm: None - Past Surgical History Past Surgical History: Yes - Present Medications Home Medications: Ambulatory Orders Medication Instructions Recorded Confirmed Aripiprazole [Abilify Maintena] 400 mg IM ONCE 06/13/20 02/18/21 Desonide [Desowen] 60 gm TP BID #60 gm 02/18/21 Mupirocin 2% Oint [Bactroban 2% 1 applic TOP BID #22 gm 02/18/21 Oint] - Allergies Allergies/Adverse Reactions: Allergies Allergy/AdvReac Type Severity Reaction Status Date / Time oxycodone AdvReac Unknown Verified 02/18/21 19:33 - Social History Does the pt smoke?: Yes Smoking Status: Current every day smoker Does the pt drink ETOH?: Yes Does the pt have substance abuse?: No - Immunizations Immunizations are current?: Yes - POLST Patient has POLST: No PD ED PE EXPANDED - General General: Alert, No acute distress - Extremities Extremities: Right finger(s) (Multiple blistering lesions on the radial and medial side of both left middle and index finger. The left middle finger does have some swelling and callus formation at the distal cuticle tip without drainage.) Results - Vitals Vitals: Vital Signs - 24 hr 02/18/21 19:29 Temperature 36.6 C Heart Rate 93 Respiratory 16 Rate Blood Pressure 135/81 H O2 Saturation 97 Oxygen O2 Source Room air PD MEDICAL DECISION MAKING - ED course Complexity details: reviewed results, re-evaluated patient, d/w patient ED course: 25-year-old male presents to the emergency department for evaluation of an intensely pruritic but recurring papular Vesicular eruption on both his middle and index finger of his left hand. This history and exam is consistent with a dyshidrotic eczema. Patient reported he been told he had that in the past but thinks that he still has worms coming out of the fingers. I recommended desonide cream to the rash as well as mupirocin ointment to the lesions around the cuticle. No findings to suggest extensive cellulitis, a paronychia herpetic brady or felon. Advise close follow-up with primary care provider. Departure - Departure Disposition: 01 Home, Self Care Clinical Impression: Dyshidrotic eczema Condition: Stable Record reviewed to determine appropriate education?: Yes Follow-Up: Lurdes Luther ARNP [Primary Care Provider] - Prescriptions: Mupirocin 2% Oint [Bactroban 2% Oint] 1 applic TOP BID #22 gm Desonide [Desowen] 60 gm TP BID #60 gm Comments: Levon the rash on your fingers is a form of eczema called dyshidrotic eczema. Please apply the desonide cream to your rash twice a day for 4 weeks. Please apply the mupirocin ointment to the cuticle of your middle finger twice daily for 2 weeks. Please schedule an appointment with your primary care doctor for follow-up.
== END 2021-02-18 21:05 | disposition home or self-care (01) ==
LOC: ED 19:22
DX: L30.1 Dyshidrosis [pompholyx] (principal); F20.9 Schizophrenia, unspecified; Z59.0 Homelessness; F17.200 Nicotine dependence, unspecified, uncomplicated
CPT/HCPCS: 99282; 99283

== ENCOUNTER 2021-09-29 13:35 | Emergency (ER) | payer OTHER ==
[2021-09-29 14:26] LABS: MUDS CUTOFF CONCENTRATIONS CUTOFF CONC BELOW:
[2021-09-29 14:28] LABS: BILIRUBIN,URINE NEGATIVE (NEGATIVE); GLUCOSE, URINE (UA) NEGATIVE (NEGATIVE); KETONES,URINE (UA) NEGATIVE (NEGATIVE); LEUKOCYTE ESTERASE, URINE NEGATIVE (NEGATIVE); NITRITE,URINE NEGATIVE (NEGATIVE); OCCULT BLOOD,URINE NEGATIVE (NEGATIVE); PH,URINE 7.5 PH (5.0-7.5); PROTEIN,URINE NEGATIVE (NEGATIVE); UROBILINOGEN,URINE 0.2 (NORMAL) E.U./dL (NORMAL)
[2021-09-29 14:29] LABS: CLARITY,URINE CLEAR (CLEAR)
[2021-09-29 14:41] LABS: AMPHETAMINE SCREEN,URINE NEGATIVE (NEGATIVE); BARBITURATE SCREEN,UR NEGATIVE (NEGATIVE); BENZODIAZEPINES SCREEN, URINE NEGATIVE (NEGATIVE); COCAINE SCREEN URINE NEGATIVE (NEGATIVE); METHADONE SCREEN, URINE NEGATIVE (NEGATIVE); METHAMPHETAMINES SCREEN, URINE NEGATIVE (NEGATIVE); OPIATE SCREEN, URINE NEGATIVE (NEGATIVE); OXYCODONE SCREEN, URINE NEGATIVE (NEGATIVE); PROPOXYPHENE SCREEN, URINE NEGATIVE (NEGATIVE); THC CANNABINOID SCREEN, URINE POSITIVE (NEGATIVE); TRICYCLIC ANTIDEPRESSANT,URINE NEGATIVE (NEGATIVE)
[2021-09-29 14:42] LABS: BASOPHILS % (AUTO) 0.4 %; EOSINOPHILS # (AUTO) 0.3 10^3/uL (0.0-0.7); EOSINOPHILS % (AUTO) 3.1 %; HGB - HEMOGLOBIN 17.1 g/dL (14.0-18.0); LYMPHOCYTES # (AUTO) 1.9 10^3/uL (1.5-3.5); LYMPHOCYTES % (AUTO) 19.2 %; MEAN CORPUSCULAR HEMOGLOBIN 28.4 pg (27.0-31.0); MEAN CORPUSCULAR HGB CONC 33.5 g/dL (32.0-36.0); MEAN CORPUSCULAR VOLUME 84.6 fL (80.0-94.0); MEAN PLATELET VOLUME 9.8 fL (7.4-11.4); MONOCYTES % (AUTO) 9.6 %; NEUTROPHILS # (AUTO) 6.7 10^3/uL (1.5-6.6); NEUTROPHILS % (AUTO) 67.3 %; PLT - PLATELET COUNT 281 10^3/uL (130-450); RED BLOOD COUNT 6.03 10^6/uL (4.70-6.10); RED CELL DISTRIBUTION WIDTH 12.8 % (12.0-15.0); WHITE BLOOD COUNT 9.9 x10^3/uL (4.8-10.8)
[2021-09-29 14:55] LABS: ACETAMINOPHEN < 10 ug/mL (10-30); ALBUMIN 4.6 g/dL (3.2-5.5); ALBUMIN/GLOBULIN RATIO 1.5 (1.0-2.2); ALKALINE PHOSPHATASE 54 IU/L (42-121); ALT ALANINE AMINOTRANSFERASE 20 IU/L (10-60); AST ASPARTATE AMINOTRANSFERASE 24 IU/L (10-42); BUN - BLOOD UREA NITROGEN 17 mg/dL (6-20); CALCIUM 9.6 mg/dL (8.5-10.3); CARBON DIOXIDE - CO2 29 mmol/L (21-32); CHLORIDE 99 mmol/L (101-111); CREATININE 0.9 mg/dL (0.6-1.2); ETOH - ETHANOL < 5.0 mg/dL; GFR - MDRD 103 (>89); GLUCOSE 104 mg/dL (70-100); LIPASE 46 U/L (22-51); POTASSIUM 4.2 mmol/L (3.5-5.0); SALICYLATE < 6.0 mg/dL; SODIUM 140 mmol/L (135-145); TOTAL PROTEIN 7.7 g/dL (6.7-8.2)
--- NOTE | 2021-09-29 15:07 | ED Physician Documentation ---
PD HPI MHE - Stated complaint Stated Complaint: MHE - Chief complaint Chief Complaint: MHE - History obtained from History obtained from: Patient - Additional information Additional information: 26-year-old gentleman with a history of paranoid schizophrenia on Abilify maintain a presents with agitation and thoughts of he will hurting his adoptive parents. Denies SI. Would like to go inpatient. Review of Systems Ten Systems: 10 systems reviewed and negative Cardiac: reports: Reviewed and negative Respiratory: reports: Reviewed and negative PD PAST MEDICAL HISTORY - Past Medical History Cardiovascular: None Respiratory: None Neuro: None Endocrine/Autoimmune: None GI: None : Other HEENT: None Psych: Bipolar disorder, Schizophrenia, Post traumatic stress disorder Musculoskeletal: None Derm: None - Past Surgical History Past Surgical History: Yes - Present Medications Home Medications: Ambulatory Orders Medication Instructions Recorded Confirmed Aripiprazole [Abilify Maintena] 400 mg IM ONCE 06/13/20 02/18/21 Desonide [Desowen] 60 gm TP BID #60 gm 02/18/21 Mupirocin 2% Oint [Bactroban 2% 1 applic TOP BID #22 gm 02/18/21 Oint] - Allergies Allergies/Adverse Reactions: Allergies Allergy/AdvReac Type Severity Reaction Status Date / Time oxycodone AdvReac Unknown Verified 09/29/21 14:00 - Social History Does the pt smoke?: Yes Smoking Status: Current every day smoker Does the pt drink ETOH?: Yes Does the pt have substance abuse?: No - Immunizations Immunizations are current?: Yes - POLST Patient has POLST: No PD ED PE NORMAL - Vitals Vital signs reviewed: Yes - General General: Alert and oriented X 3, No acute distress, Other (Somewhat disheveled) - HEENT HEENT: PERRL, EOMI - Neck Neck: Supple, no meningeal sign, No bony TTP - Cardiac Cardiac: RRR, No murmur - Respiratory Respiratory: No respiratory distress, Clear bilaterally - Abdomen Abdomen: Soft, Non tender - Back Back: No CVA TTP, No spinal TTP - Derm Derm: Normal color, Warm and dry - Extremities Extremities: No edema, No calf tenderness / cord - Neuro Neuro: Alert and oriented X 3, Normal speech - Psych Psych: Normal mood, Normal affect Results - Vitals Vitals: Vital Signs - 24 hr 09/29/21 09/29/21 14:00 14:03 Temperature 36.8 C 36.8 C Heart Rate 102 H 100 Respiratory 18 18 Rate Blood Pressure 128/76 128/76 O2 Saturation 96 96 Oxygen O2 Source Room air - Labs Labs: Laboratory Tests 09/29/21 09/29/21 09/29/21 14:13 14:34 14:34 WBC 9.9 RBC 6.03 Hgb 17.1 Hct 51.0 MCV 84.6 MCH 28.4 MCHC 33.5 RDW 12.8 Plt Count 281 MPV 9.8 Neut # (Auto) 6.7 H Lymph # (Auto) 1.9 [place] # (Auto) 1.0 Eos # (Auto) 0.3 Baso # (Auto) 0.0 Absolute Nucleated RBC 0.00 Nucleated RBC % 0.0 Sodium 140 Potassium 4.2 Chloride 99 L Carbon Dioxide 29 Anion Gap 12.0 BUN 17 Creatinine 0.9 Estimated GFR (MDRD) 103 Glucose 104 H Calcium 9.6 Total Bilirubin 1.0 AST 24 ALT 20 Alkaline Phosphatase 54 Total Protein 7.7 Albumin 4.6 Globulin 3.1 Albumin/Globulin Ratio 1.5 Lipase 46 TSH Urine Color YELLOW Urine Clarity CLEAR Urine pH 7.5 Ur Specific [place] 1.015 Urine Protein NEGATIVE Urine Glucose (UA) NEGATIVE Urine Ketones NEGATIVE Urine Occult Blood NEGATIVE Urine Nitrite NEGATIVE Urine Bilirubin NEGATIVE Urine Urobilinogen 0.2 (NORMAL) Ur Leukocyte Esterase NEGATIVE Ur Microscopic Review NOT INDICATED Urine Culture Comments NOT INDICATED Salicylates < 6.0 Urine Opiates Screen NEGATIVE Ur Oxycodone Screen NEGATIVE Urine Methadone Screen NEGATIVE Ur Propoxyphene Screen NEGATIVE Acetaminophen < 10 L Ur Barbiturates Screen NEGATIVE Ur Tricyclics Screen NEGATIVE Ur Phencyclidine Scrn NEGATIVE Ur Amphetamine Screen NEGATIVE U Methamphetamines Scrn NEGATIVE U Benzodiazepines Scrn NEGATIVE Urine Cocaine Screen NEGATIVE U Cannabinoids Screen POSITIVE H Ethyl Alcohol < 5.0 SARS-CoV-2 (PCR) 09/29/21 09/29/21 14:34 14:37 WBC RBC Hgb Hct MCV MCH MCHC RDW Plt Count MPV Neut # (Auto) Lymph # (Auto) [place] # (Auto) Eos # (Auto) Baso # (Auto) Absolute Nucleated RBC Nucleated RBC % Sodium Potassium Chloride Carbon Dioxide Anion Gap BUN Creatinine Estimated GFR (MDRD) Glucose Calcium Total Bilirubin AST ALT Alkaline Phosphatase Total Protein Albumin Globulin Albumin/Globulin Ratio Lipase TSH 1.07 Urine Color Urine Clarity Urine pH Ur Specific [place] Urine Protein Urine Glucose (UA) Urine Ketones Urine Occult Blood Urine Nitrite Urine Bilirubin Urine Urobilinogen Ur Leukocyte Esterase Ur Microscopic Review Urine Culture Comments Salicylates Urine Opiates Screen Ur Oxycodone Screen Urine Methadone Screen Ur Propoxyphene Screen Acetaminophen Ur Barbiturates Screen Ur Tricyclics Screen Ur Phencyclidine Scrn Ur Amphetamine Screen U Methamphetamines Scrn U Benzodiazepines Scrn Urine Cocaine Screen U Cannabinoids Screen Ethyl Alcohol SARS-CoV-2 (PCR) NOT DETECTED PD MEDICAL DECISION MAKING - ED course ED course: Seen by social work, his symptoms had changed by that point and he was no longer thinking of hurting any other people. Continued to deny SI and declined efforts at voluntary hospitalization. No indication for involuntary hospitalization. Departure - Departure Disposition: 01 Home, Self Care Clinical Impression: PTSD (post-traumatic stress disorder) Condition: Good Record reviewed to determine appropriate education?: Yes Instructions: ED Psychosis Comments: Return if you worsen or develop recurrent thoughts of hurting yourself or others. Follow-up with your psychiatric provider soon as possible.
[2021-09-29 17:00] VITALS: BP 120/72
== END 2021-09-29 16:59 | disposition home or self-care (01) ==
LOC: ED 13:35
DX: F43.10 Post-traumatic stress disorder, unspecified (principal); F20.0 Paranoid schizophrenia; R45.850 Homicidal ideations; Z20.822 Contact with and (suspected) exposure to COVID-19; F17.200 Nicotine dependence, unspecified, uncomplicated
CPT/HCPCS: 36415; 80053; 80306; 80307; 80320; 80329; 81001; 81003; 83690; 84443; 85025; 87086; 99283

== ENCOUNTER 2021-12-07 23:50 | Emergency (ER) | payer OTHER, MEDICAID ==
[2021-12-08 00:05] VITALS: BP 123/72
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
== END 2021-12-08 00:32 | disposition home or self-care (01) ==
LOC: ED 23:50
DX: Z63.8 Other specified problems related to primary support group (principal)
CPT/HCPCS: 99281

== ENCOUNTER 2022-09-10 17:10 | Emergency (ER) | payer MEDICAID, OTHER ==
[2022-09-10 17:25] VITALS: BP 122/74
--- NOTE | 2022-09-10 17:45 | ED Physician Documentation ---
History of Present Illness - Stated complaint Stated Complaint: MED REFILL - Chief complaint Chief Complaint: General - History obtained from History obtained from: Patient - Additonal information Additional information: The patient comes to the emergency department chief complaint of needing a med refill. He states he is on multiple medications for anxiety, ADHD, and PTSD, as well as insomnia, and he was recently discharged from [facility] after prolonged residential stay. He has an appointment with a new primary care physician on October 14 but is concerned because he is going to run out of his medication soon and since he has finally become stabilized on the meds, he does not want to have a lapse. He is requesting a medication refill of multiple meds. Review of Systems Constitutional: reports: Reviewed and negative Eyes: reports: Reviewed and negative Ears: reports: Reviewed and negative Nose: reports: Reviewed and negative Throat: reports: Reviewed and negative Cardiac: reports: Reviewed and negative Respiratory: reports: Reviewed and negative GI: reports: Reviewed and negative : reports: Reviewed and negative Skin: reports: Reviewed and negative Musculoskeletal: reports: Reviewed and negative Neurologic: reports: Reviewed and negative Psychiatric: reports: Reviewed and negative Endocrine: reports: Reviewed and negative Immunocompromised: reports: Reviewed and negative PD PAST MEDICAL HISTORY - Past Medical History Cardiovascular: None Respiratory: None Neuro: None Endocrine/Autoimmune: None GI: None : Other HEENT: None Psych: Bipolar disorder, Schizophrenia, Post traumatic stress disorder Musculoskeletal: None Derm: None - Past Surgical History Past Surgical History: Yes - Present Medications Home Medications: Ambulatory Orders Medication Instructions Recorded Confirmed Atomoxetine HCl [Strattera] 25 mg PO BID #90 cap 09/10/22 Cholecalciferol (Vitamin D3) 50 mcg PO DAILY #90 cap 09/10/22 [Vitamin D3] Docusate Sodium 100Mg Capsule 200 mg PO DAILY #90 cap 09/10/22 [Colace 100Mg Capsule] LORazepam [Ativan] 0.5 mg PO Q4H PRN #90 tablet 09/10/22 Melatonin 3 mg PO HS PRN #90 tablet 09/10/22 Multivitamin 1 each PO DAILY #90 tablet 09/10/22 OLANZapine [Zyprexa] 20 mg PO HS #90 tablet 09/10/22 Prazosin [Minipress] 1 mg PO QPM #90 cap 09/10/22 Sertraline HCl 100 mg PO DAILY #90 tablet 09/10/22 Sertraline HCl [Zoloft] 50 mg PO DAILY #90 tablet 09/10/22 Valproate Oral Soln [Valproic Acid 1,000 mg PO BID #800 ml 09/10/22 Oral Soln] hydrOXYzine HCL [Hydroxyzine HCl] 25 mg PO BID #90 tablet 09/10/22 polyethylene glycoL 3350 17 gm PO DAILY #90 packet 09/10/22 [Polyethylene Glycol 3350] - Allergies Allergies/Adverse Reactions: Allergies Allergy/AdvReac Type Severity Reaction Status Date / Time oxycodone AdvReac Severe Anaphylaxis Verified 01/29/22 23:28 aripiprazole [From Abilify] AdvReac Anxiety Verified 09/10/22 17:26 narcotics AdvReac Unknown Uncoded 09/10/22 17:26 - Social History Does the pt smoke?: Yes Smoking Status: Current every day smoker Does the pt drink ETOH?: Yes Does the pt have substance abuse?: No - Immunizations Immunizations are current?: Yes - POLST Patient has POLST: No PD ED PE NORMAL - Vitals Vital signs reviewed: Yes - General General: Alert and oriented X 3, No acute distress - HEENT HEENT: Atraumatic, PERRL, Moist mucous membranes - Cardiac Cardiac: RRR - Respiratory Respiratory: No respiratory distress, Clear bilaterally - Abdomen Abdomen: Soft, Non tender, Non distended - Derm Derm: Warm and dry - Extremities Extremities: No deformity - Neuro Neuro: Alert and oriented X 3 - Psych Psych: Normal mood, Normal affect Results - Vitals Vitals: Oxygen O2 Source Room air PD Medical Decision Making - ED course Complexity details: considered differential, d/w patient ED course: All of the requested medications were prescribed through [facility]. I have advised the patient that is very important that he follows up with his primary care physician for his scheduled appointment in mid September. Departure - Departure Disposition: 01 Home, Self Care Clinical Impression: Medication refill Condition: Stable Instructions: PTSD Coping Prescriptions: LORazepam [Ativan] 0.5 mg PO Q4H PRN #90 tablet PRN Reason: Anxiety Docusate Sodium 100Mg Capsule [Colace 100Mg Capsule] 200 mg PO DAILY #90 cap hydrOXYzine HCL [Hydroxyzine HCl] 25 mg PO BID #90 tablet Melatonin 3 mg PO HS PRN #90 tablet PRN Reason: Insomnia Prazosin [Minipress] 1 mg PO QPM #90 cap Multivitamin 1 each PO DAILY #90 tablet polyethylene glycoL 3350 [Polyethylene Glycol 3350] 17 gm PO DAILY #90 packet Sertraline HCl 100 mg PO DAILY #90 tablet Atomoxetine HCl [Strattera] 25 mg PO BID #90 cap Valproate Oral Soln [Valproic Acid Oral Soln] 1,000 mg PO BID #800 ml Cholecalciferol (Vitamin D3) [Vitamin D3] 50 mcg PO DAILY #90 cap Sertraline HCl [Zoloft] 50 mg PO DAILY #90 tablet OLANZapine [Zyprexa] 20 mg PO HS #90 tablet Comments: Your medications will be manually entered into our computer system and prescriptions will be electronically transmitted to the [facility] pharmacy in [place]. Please check back with them either this evening or tomorrow morning to get these picked up. Discharge Date/Time: 09/10/22 17:59
== END 2022-09-10 17:59 | disposition home or self-care (01) ==
LOC: ED 17:10
DX: Z76.0 Encounter for issue of repeat prescription (principal); F17.200 Nicotine dependence, unspecified, uncomplicated
CPT/HCPCS: 99281; 99282